=== PATIENT | female | born 1985 | race Caucasian/White ===

== ENCOUNTER 2023-03-20 19:39 | Inpatient (IN) | payer MEDICAID ==
[~2023-03-20] VITALS: Ht 172.7 cm; Wt 78.4 kg
[~2023-03-20 19:39] MED LIST: ALBU18HF2 INH; BENZ0.5T36 PO; BUPR1TAB44 SL; BUSP5TAB3 PO; LITH150C8 PO; MIRT-142 PO
[2023-03-21 00:10] VITALS: RESP 16; O2SAT 94
[2023-03-21] MEDS ORDERED: mag hydrox/Alum hydrox/simeth 30ml oral suspension PO PRN (00:50)
[2023-03-21] MEDS ORDERED: acetaminophen 325mg tablet PO PRN (00:50)
[2023-03-21] MEDS ORDERED: loperamide 2mg capsule PO PRN (00:50)
[2023-03-21] MEDS ORDERED: diphenhydrAMINE 25 MG/10 ML UD oral solution PO PRN (01:15)
[2023-03-21 01:21] VITALS: BP 137/83; PULSE 96; RESP 16; TEMP 98.5; O2SAT 94
[2023-03-21] MEDS: LORazepam 1 MG tablet PO PRN ×2 (01:56→20:39)
--- NOTE | 2023-03-21 02:00 | NUR ---
ADMIT NOTE: Problem: A 38 year old female, with multiple medical problems in addition to psychiatric disorder, presented with altered level of consciousness and was admitted to PCU. Once medically cleared was admitted to [facility] for SI with reports of feeling hopeless and helpless and didnt see herself leaving the hospital. Prior to hospital admission patient was incarcerated in [place] until September. Was in [facility] for some time then was at [facility] for 1 month. She reported to staff at [facility], I think Im going to today. Patient then disappeared for a bit and was found in a position with ALOC. Medical history includes: Possible seizure disorder, Uncontrolled HTN, COPD, Chronic Diverticulosis, UTIs, Depression/Anxiety, Bipolar, SI attempts, Meth and Opioid abuse. Response: Arrived to room 330 A at 0010. Patient is in a catatonic state. Patient is lying very still. Agreed to skin check without hesitation. Noted red raised irritated skin to left upper back from what appears to be her scratching and redness/scabs to bilateral buttocks from scratching. Patient received Benadryl from Alice VAMP WETTER prior to transfer to this floor. When performing 1:1 assessment noted patient giving good eye contact with about 5 second delay in responding to questions. Patient reports feeling unsafe. Reassured her that she was safe. Offered her water and warm blankets. Line of sight at bedside. #20 gauge PIV to R hand. Patent and flushes well. Able to ambulate to BR. Administered PRN Ativan this shift. Endorses SI without a plan. Delusions noted. Reports feeling like she's in a movie. Also reported at one point in the evening that she thought was . Will continue to monitor.
[2023-03-21 07:00] VITALS: BP 108/64; PULSE 85; RESP 16; TEMP 97.7; O2SAT 94; O2SAT 95
[2023-03-21] MEDS ORDERED: PALIPERIDONE 3 MG TAB.ER.24 PO SCH (08:00)
[2023-03-21] MEDS: buprenorphine/naloxone 2-0.5mg sublingual tablet SL SCH (08:24)
[2023-03-21] MEDS: busPIRone 5mg tablet PO SCH ×3 (08:24→20:40)
[2023-03-21] MEDS: docusate sod 100mg capsule PO SCH ×2 (08:25→20:40)
[2023-03-21] MEDS: amLODIPine 5mg tablet PO SCH (08:25)
[2023-03-21] MEDS: pantoprazole 40mg Tablet.DR PO SCH (08:25)
--- NOTE | 2023-03-21 14:46 | NUR ---
PSYCHOSOCIAL ASSESSMENT Met with Pt. briefly today. Pt is a 38 year old white female, with multiple medical problems in addition to psychiatric disorder, presented with altered level of consciousness and was admitted to PCU. Once medically cleared was admitted to [facility] for SI with reports of feeling hopeless and helpless and didnt see herself leaving the hospital. Prior to hospital admission patient was incarcerated in [place] until September. Was in [facility] for some time then was at [facility] for 1 month before admission. She reported to staff at [facility], I think Im going to today. Patient then disappeared for a bit and was found in a position with ALOC. Medical history includes: Possible seizure disorder, Uncontrolled HTN, COPD, Chronic Diverticulosis, UTIs, Depression/Anxiety, Bipolar, SI attempts, Meth and Opioid abuse. Per EMR notes, Pt has been in and out of usp with no contact with her family. Her Aunt Susanne has adopted her 13 year old son and her other two children [place]. Her Aunt Susanne reported that she was in a coma for about 3 weeks 1 year ago that was drug related. When she came out of the coma she had to be taught how to walk, talk etc. However she made a full recovery. She also has drop foot. Her Aunt Susanne also reported her having a dx of Bipolar but has failed on Artois. Pt has a PO through [facility] Hailey Mansfield [phone]. Pt reported that her drug of choice is fentanyl. MSE: Pt was laying in her bed when this Medical Support Assistant introduced myself to her. She spoke minimally and mostly stared straight ahead and would occasionally answer questions. When asked how are you today PT reported, Im . I dont know whats going on. When asked if she knew where she was she was able to say she was in a hospital. Hailey Carlos LCSW
[2023-03-21] MEDS ORDERED: magnesium 4gm in 100ml NS 100 ML IV PRN (18:05)
[2023-03-21] MEDS ORDERED: magnesium Cl slow-release 64mg tablet PO PRN (18:05)
[2023-03-21] MEDS ORDERED: potassium Cl 40MEQ/1/2NS 520ml 520 ML IV PRN (18:05)
[2023-03-21] MEDS ORDERED: magnesium 2GM in 50ml NS 50 ML IV PRN (18:05)
[2023-03-21] MEDS ORDERED: potassium Cl 20 mEq SR tablet PO PRN ×2 (18:05)
--- NOTE | 2023-03-21 18:05 | NUR ---
Nursing Progress Note: Problem: A 38 year old female, with multiple medical problems in addition to psychiatric disorder, presented with altered level of consciousness and was admitted to PCU. Once medically cleared was admitted to [facility] for SI with reports of feeling hopeless and helpless and didnt see herself leaving the hospital. Prior to hospital admission patient was incarcerated in [place] until September. Was in [facility] for some time then was at [facility] for 1 month. She reported to staff at [facility], I think Im going to today. Patient then disappeared for a bit and was found in a position with ALOC. Medical history includes: Possible seizure disorder, Uncontrolled HTN, COPD, Chronic Diverticulosis, UTIs, Depression/Anxiety, Bipolar, SI attempts, Meth and Opioid abuse. Interventions: Provided 1:1 assessment, therapeutic conversation, active listening, medication administration/education/monitoring, behavior monitoring and intervention as needed; attempted reality orientation, provided distraction, redirection, positive reinforcement, and Q15 min safety checks. Response: Received patient sleeping in bed at shift change. Patient is extremely tired and was left to sleep. Patient got up for breakfast and took her medications and went back to bed. At approximately 11:00, patient awakened and 1:1 was performed at bedside. Patient wanted to know if she was going to be taken to prison. Explained that she is in a psychiatric hospital and we are going to get her meds straightened out and then she can be released, but that she would be with us for at least 3 days. Patient states understanding. Patient is complaining of the I.V. in her right wrist, removed with cannula tip intact. Patient wanted to know why she was in here, and RN explained that she was suicidal and does she remember that, she says that she does. Patient states that she thought she was , and that she was having out of body experiences. Plan: Patient is in need of a safe and secure environment with medication changes.
[2023-03-21 20:00] VITALS: BP 140/80; PULSE 100; RESP 16; TEMP 98.6; O2SAT 98
[2023-03-21] MEDS: K and/or MAG REPLACEMENT MC SCH (20:00)
[2023-03-21] MEDS: mirtazapine 15mg tablet PO SCH (20:40)
[2023-03-21] MEDS: traZODone 50mg tablet PO SCH ×2 (20:41→21:35)
--- NOTE | 2023-03-22 01:46 | NUR ---
Nursing Progress Note: Problem: A 38 year old female, with multiple medical problems in addition to psychiatric disorder, presented with altered level of consciousness and was admitted to PCU. Once medically cleared was admitted to [facility] for SI with reports of feeling hopeless and helpless and didnt see herself leaving the hospital. Prior to hospital admission patient was incarcerated in [place] until September. Was in [facility] for some time then was at [facility] for 1 month. She reported to staff at [facility], I think Im going to today. Patient then disappeared for a bit and was found in a position with ALOC. Medical history includes: Possible seizure disorder, Uncontrolled HTN, COPD, Chronic Diverticulosis, UTIs, Depression/Anxiety, Bipolar, SI attempts, Meth and Opioid abuse. Interventions: Provided 1:1 assessment, therapeutic conversation, active listening, medication administration/education/monitoring, behavior monitoring and intervention as needed; attempted reality orientation, provided distraction, redirection, positive reinforcement, and Q15 min safety checks. Response: Patient is pleasant and appears to cooperate to best of her ability. She is appears to thought block; she stated, "yes," to SI with active planning but unable to elaborate. Patient appears to struggle with stating her needs; she came out of her room looking like she needed something but was able to communicate what she was needing/wanting. She was compliant with medication; PRN Ativan provided for anxiety and Trazodone with repeat provided for sleep. Patient is observed sleeping and does not appear to be having difficulty at this time. Plan: Patient is in need of a safe and secure environment with medication changes.
[2023-03-22 07:00] VITALS: RESP 12; O2SAT 94
[2023-03-22 08:00] VITALS: BP 130/74; PULSE 124; RESP 12; TEMP 98.6; O2SAT 94
[2023-03-22] MEDS: K and/or MAG REPLACEMENT MC SCH ×2 (08:00→20:00)
[2023-03-22] MEDS: pantoprazole 40mg Tablet.DR PO SCH (08:19)
[2023-03-22] MEDS: busPIRone 5mg tablet PO SCH ×3 (08:19→21:15)
[2023-03-22] MEDS: amLODIPine 5mg tablet PO SCH (08:19)
[2023-03-22] MEDS: docusate sod 100mg capsule PO SCH ×2 (08:19→21:15)
[2023-03-22] MEDS: PALIPERIDONE 3 MG TAB.ER.24 PO SCH (08:20)
[2023-03-22] MEDS: buprenorphine/naloxone 2-0.5mg sublingual tablet SL SCH (08:21)
[2023-03-22 11:15] LABS: ALANINE AMINOTRANSFERASE 48 U/L (12-78); ALBUMIN 4.2 G/DL (3.4-5.0); ALBUMIN/GLOBULIN RATIO 1.1 (1.1-1.5); ALKALINE PHOSPHATASE 93 IU/L (46-116); ANION GAP 10 (8-16); ASPARTATE AMINO TRANSFERASE 32 U/L (10-37); BILIRUBIN,TOTAL 0.2 MG/DL (0.1-1.0); BLOOD UREA NITROGEN 14 MG/DL (7-18); BUN/CREATININE RATIO 16.9 (10.0-20.0); CALCIUM 9.4 MG/DL (8.5-10.1); CHLORIDE 101 MMOL/L (99-107); CREATININE 0.83 MG/DL (0.40-0.90); GLUCOSE 119 MG/DL (70-104); LDL CHOLESTEROL 109 MG/DL (50-100); MAGNESIUM 2.3 MG/DL (1.5-2.4); POTASSIUM 3.6 MMOL/L (3.5-5.1); SODIUM 139 MMOL/L (135-145); TOTAL CARBON DIOXIDE 28.2 MMOL/L (24-32); eCRCL 92 ML/MIN; eGFR 77 ML/MIN
[2023-03-22] MEDS ORDERED: LITH150C8 PO (11:30)
[2023-03-22] MEDS ORDERED: BUSP5TAB3 PO (11:30)
[2023-03-22] MEDS ORDERED: BENZ0.5T36 PO (11:30)
[2023-03-22] MEDS ORDERED: MIRT-142 PO (11:30)
[2023-03-22] MEDS ORDERED: ALBU18HF2 INH (11:30)
--- NOTE | 2023-03-22 12:09 | NUR ---
Malnutrition consult: Pt reports 14-23 lb wt loss with decreased appetite/PO intake per malnutrition risk screen with RN. Noted pt in a catatonic state on admit to [facility] per senior naval parachutist. Only wt hx in EMR is 79.55 kg 03/17 though no documentation of how wt was obtained. Current scaled weight is 79.55 kg which is 125% IBW. Pt on a regular diet while on PCU prior to transfer to [facility] with fluctuating PO intake, averaging 50% of seven meals which met 63% estimated energy needs and 87% estimated protein needs. Current average PO intake on regular diet has improved to 63% meeting 78% estimated energy needs and 100% estimated protein needs. Per H&P 03/17 pt appears well developed well nourished. Pt with no documented significant decrease in muscle strength or edema. Pt currently lacks a minimum of two criteria for malnutrition. Will continue to follow and monitor s/s of malnutrition. Addendum: 03/22/23 at [address] La Garza RD Amended: Links added.
--- NOTE | 2023-03-22 16:34 | NUR ---
Nursing Progress Note: Vida Problem: A 38 year old female, with multiple medical problems in addition to psychiatric disorder, presented with altered level of consciousness and was admitted to PCU. Once medically cleared was admitted to [facility] for SI with reports of feeling hopeless and helpless and didnt see herself leaving the hospital. Prior to hospital admission patient was incarcerated in [place] until September. Was in [facility] for some time then was at [facility] for 1 month. She reported to staff at [facility], I think Im going to today. Patient then disappeared for a bit and was found in a position with ALOC. Medical history includes: Possible seizure disorder, Uncontrolled HTN, COPD, Chronic Diverticulosis, UTIs, Depression/Anxiety, Bipolar, SI attempts, Meth and Opioid abuse. Interventions: Provided 1:1 assessment, therapeutic conversation, active listening, medication administration/education/monitoring, behavior monitoring and intervention as needed; attempted reality orientation, provided distraction, redirection, positive reinforcement, and Q15 min safety checks. Response: Received Pt in bed sleeping w/o distress at the beginning of this shift. Pt was cooperative with vitals and woke for the day. She came to the nurses station with a fearful look on her face, stating she was having an out of body experience. Pt was walked back to her room and comforted. She came to community room and ate breakfast well. Pt took meds today w/o issue. She returned to bed and napped in AM. She isolated to self, even though walked halls and sat in rooms with others. Pt responds in a delayed fashion to questions and sometimes would just stare and not answer. She did not need prn meds as of the writing of this note. Plan: Patient is in need of a safe and secure environment with medication changes.
[2023-03-22] MEDS: LORazepam 1 MG tablet PO PRN (18:16)
[2023-03-22] MEDS ORDERED: propranolol 10mg tablet PO PRN (18:20)
[2023-03-22 19:00] VITALS: BP 119/71; PULSE 108; RESP 14; TEMP 97.8; O2SAT 99
[2023-03-22] MEDS: benztropine 1mg tablet PO SCH (20:00)
[2023-03-22] MEDS ORDERED: albuterol 2.5 MG/3 ML nebule NEB PRN (20:00)
[2023-03-22] MEDS ORDERED: busPIRone 5mg tablet PO SCH (20:00)
[2023-03-22] MEDS ORDERED: mirtazapine 15mg tablet PO SCH (21:00)
[2023-03-22] MEDS: traZODone 50mg tablet PO SCH (21:16)
[2023-03-22] MEDS: mirtazapine 15mg tablet PO SCH (21:16)
[2023-03-22] MEDS: lithium carbonate 150mg capsule PO SCH (21:29)
--- NOTE | 2023-03-23 04:55 | NUR ---
RN PROGRESS NOTE: LEGAL HOLD: 5250 for DTS/GD PROBLEM: Client reported thoughts of suicide. She has thought blocking and AH. Hx substance use. RESPONSE: Client has a flat affect, is depressed and guarded. She stated "I hope you elida's don't estrada me out. I'm going to kill myself and I want to have a happy life before I ." Client was assured she would not be rushed out. She stated I keep hearing "Get out of here! Get out of here! Get out of here!" Client was re-assured staff was not asking her to leave and she was still on a Legal Hold. Client took meds, had a snack, and returned to sleep w/o difficulty. PLAN: Client requires stabilization.
[2023-03-23] MEDS: busPIRone 5mg tablet PO SCH ×3 (07:47→21:27)
[2023-03-23] MEDS: benztropine 1mg tablet PO SCH ×2 (07:47→21:26)
[2023-03-23] MEDS: pantoprazole 40mg Tablet.DR PO SCH (07:47)
[2023-03-23] MEDS: buprenorphine/naloxone 2-0.5mg sublingual tablet SL SCH (07:48)
[2023-03-23] MEDS: PALIPERIDONE 3 MG TAB.ER.24 PO SCH (07:48)
[2023-03-23] MEDS: amLODIPine 5mg tablet PO SCH (07:49)
[2023-03-23] MEDS: docusate sod 100mg capsule PO SCH ×2 (07:50→21:26)
[2023-03-23 08:00] VITALS: BP 117/63; PULSE 140; RESP 12; TEMP 97.4; O2SAT 98
[2023-03-23] MEDS: K and/or MAG REPLACEMENT MC SCH ×2 (08:00→20:00)
[2023-03-23 10:30] VITALS: PULSE 104
--- NOTE | 2023-03-23 16:46 | NUR ---
Nursing Progress Note: Vida Problem: A 38 year old female, with multiple medical problems in addition to psychiatric disorder, presented with altered level of consciousness and was admitted to PCU. Once medically cleared was admitted to [facility] for SI with reports of feeling hopeless and helpless and didnt see herself leaving the hospital. Prior to hospital admission patient was incarcerated in [place] until September. Was in [facility] for some time then was at [facility] for 1 month. She reported to staff at [facility], I think Im going to today. Patient then disappeared for a bit and was found in a position with ALOC. Medical history includes: Possible seizure disorder, Uncontrolled HTN, COPD, Chronic Diverticulosis, UTIs, Depression/Anxiety, Bipolar, SI attempts, Meth and Opioid abuse. Interventions: Provided 1:1 assessment, therapeutic conversation, active listening, medication administration/education/monitoring, behavior monitoring and intervention as needed; attempted reality orientation, provided distraction, redirection, positive reinforcement, and Q15 min safety checks. Response: Patient continues to sleep and isolate during the morning only getting up for meals. Patient eventually started talking and walking with other patients. Patient started telling other patients about her past. Patient is compliant with medications. Patient speaks very little when nurse tries to talk about why she is here. Patient was given mom due to not having a bowel movement in three days. Waiting on results. Plan: Patient is in need of a safe and secure environment with medication changes.
--- NOTE | 2023-03-23 17:57 | NUR ---
BEATER HEAD documentation: I have reviewed all interventions and assessments performed and documented by Gianfranco.
[2023-03-23 19:00] VITALS: BP 122/61; PULSE 102; RESP 14; RESP 17; TEMP 97.7; O2SAT 99
[2023-03-23] MEDS: mirtazapine 15mg tablet PO SCH (21:27)
[2023-03-23] MEDS: lithium carbonate 150mg capsule PO SCH (21:28)
[2023-03-24] MEDS ORDERED: traZODone 50mg tablet PO ONE ×2 (00:28→01:19)
--- NOTE | 2023-03-24 04:43 | NUR ---
RN PROGRESS NOTE: LEGAL HOLD: 5250 for DTS/GD PROBLEM: Client reported thoughts of suicide. She has thought blocking and AH. Hx substance use. RESPONSE: Client stayed in bed during shift. Affect is flat, mood is depressed. Difficulty falling asleep. Client was given additional Trazodone and then stated "Can you all let me sleep for a few hours before I leave?" She continues to hear voices telling her to "Get out." Client was reassured she was not being discharged. Med compliant. PLAN: Client requires stabilization.
[2023-03-24 07:00] VITALS: RESP 16; O2SAT 98
[2023-03-24 08:00] VITALS: BP 187/106; PULSE 102; RESP 16; TEMP 97.1; O2SAT 98
[2023-03-24] MEDS: K and/or MAG REPLACEMENT MC SCH ×2 (08:00→20:00)
[2023-03-24] MEDS: benztropine 1mg tablet PO SCH ×2 (08:17→20:38)
[2023-03-24] MEDS: PALIPERIDONE 3 MG TAB.ER.24 PO SCH (08:17)
[2023-03-24] MEDS: amLODIPine 5mg tablet PO SCH (08:18)
[2023-03-24] MEDS: busPIRone 5mg tablet PO SCH ×3 (08:18→20:34)
[2023-03-24] MEDS: pantoprazole 40mg Tablet.DR PO SCH (08:18)
[2023-03-24] MEDS: docusate sod 100mg capsule PO SCH ×2 (08:18→20:34)
[2023-03-24] MEDS: buprenorphine/naloxone 2-0.5mg sublingual tablet SL SCH (08:19)
[2023-03-24] MEDS ORDERED: propranolol 10mg tablet PO PRN (09:35)
--- NOTE | 2023-03-24 16:51 | NUR ---
Nursing Progress Note: Vida Problem: A 38 year old female, with multiple medical problems in addition to psychiatric disorder, presented with altered level of consciousness and was admitted to PCU. Once medically cleared was admitted to [facility] for SI with reports of feeling hopeless and helpless and didnt see herself leaving the hospital. Prior to hospital admission patient was incarcerated in [place] until September. Was in [facility] for some time then was at [facility] for 1 month. She reported to staff at [facility], I think Im going to today. Patient then disappeared for a bit and was found in a position with ALOC. Medical history includes: Possible seizure disorder, Uncontrolled HTN, COPD, Chronic Diverticulosis, UTIs, Depression/Anxiety, Bipolar, SI attempts, Meth and Opioid abuse. Interventions: Provided 1:1 assessment, therapeutic conversation, active listening, medication administration/education/monitoring, behavior monitoring and intervention as needed; attempted reality orientation, provided distraction, redirection, positive reinforcement, and Q15 min safety checks. Response: Received Pt in bed sleeping w/o distress at the beginning of this shift. Pt was cooperative with vitals and remained in bed until breakfast. Pt took AM meds w/o any issues. She returned to her room where she isolated for most of the day. Pts pulse was elevated in AM @ 145 then 102 upon manual repeat. Rick HARGROVE notified and Pt received Inderal 20mg. Pts pulse was 89 at noon. Pt reported they are going to get me. Im gonna be killed. Im only a 150lb woman. Pt believes other Pts common gestures or statements are intent to do her harm. Attempts made to ground and de-escalate feelings of dread. Pt able to watch TV with others in community room although she continued to feel unsafe. Plan: Patient is in need of a safe and secure environment with medication changes.
[2023-03-24] MEDS: LORazepam 1 MG tablet PO PRN (18:56)
[2023-03-24 19:00] VITALS: RESP 16; O2SAT 99
[2023-03-24 20:00] VITALS: BP 113/74; PULSE 6; RESP 16; TEMP 97.7; O2SAT 99
[2023-03-24] MEDS: traZODone 50mg tablet PO SCH (20:35)
[2023-03-24] MEDS: lithium carbonate 150mg capsule PO SCH (20:35)
[2023-03-24] MEDS: mirtazapine 15mg tablet PO SCH (20:35)
--- NOTE | 2023-03-25 00:48 | NUR ---
Nursing Progress Note: Vida Problem: A 38 year old female, with multiple medical problems in addition to psychiatric disorder, presented with altered level of consciousness and was admitted to PCU. Once medically cleared was admitted to [facility] for SI with reports of feeling hopeless and helpless and didnt see herself leaving the hospital. Prior to hospital admission patient was incarcerated in [place] until September. Was in [facility] for some time then was at [facility] for 1 month. She reported to staff at [facility], I think Im going to today. Patient then disappeared for a bit and was found in a position with ALOC. Medical history includes: Possible seizure disorder, Uncontrolled HTN, COPD, Chronic Diverticulosis, UTIs, Depression/Anxiety, Bipolar, SI attempts, Meth and Opioid abuse. Interventions: Provided 1:1 assessment, therapeutic conversation, active listening, medication administration/education/monitoring, behavior monitoring and intervention as needed; attempted reality orientation, provided distraction, redirection, positive reinforcement, and Q15 min safety checks. Response: Pt in bed awake at start of shift. She was sitting in bed with a frightened affects, eyes wide open body stiff and tense. She said she had a "very scary day." When asked what she was afraid of pt said "I'm afraid the police are going to get me, I know I am walking around but I think I may be already. Given PRN Ativan. When reassessed Pt said it did not help but she appeared more relaxed. Ate snack in room took HS meds and given repeat dose of Trazodone. Sleeping at this time. Plan: Patient is in need of a safe and secure environment with medication changes.
[2023-03-25 07:00] VITALS: RESP 20; O2SAT 95
[2023-03-25 08:00] VITALS: BP 102/67; PULSE 90; RESP 20; TEMP 98.3; O2SAT 95
[2023-03-25] MEDS: K and/or MAG REPLACEMENT MC SCH ×2 (08:00→20:00)
[2023-03-25] MEDS: busPIRone 5mg tablet PO SCH ×3 (08:05→20:39)
[2023-03-25] MEDS: docusate sod 100mg capsule PO SCH ×2 (08:05→20:39)
[2023-03-25] MEDS: buprenorphine/naloxone 2-0.5mg sublingual tablet SL SCH (08:06)
[2023-03-25] MEDS: pantoprazole 40mg Tablet.DR PO SCH (08:06)
[2023-03-25] MEDS: PALIPERIDONE 3 MG TAB.ER.24 PO SCH (08:07)
[2023-03-25] MEDS: benztropine 1mg tablet PO SCH ×2 (08:08→20:38)
[2023-03-25] MEDS: amLODIPine 5mg tablet PO SCH (08:08)
[2023-03-25 08:16] LABS: ALANINE AMINOTRANSFERASE 27 U/L (12-78); ALBUMIN 3.5 G/DL (3.4-5.0); ALBUMIN/GLOBULIN RATIO 1.1 (1.1-1.5); ALKALINE PHOSPHATASE 65 IU/L (46-116); ANION GAP 8 (8-16); ASPARTATE AMINO TRANSFERASE 13 U/L (10-37); BILIRUBIN,TOTAL 0.3 MG/DL (0.1-1.0); BLOOD UREA NITROGEN 16 MG/DL (7-18); BUN/CREATININE RATIO 20.5 (10.0-20.0); CALCIUM 8.8 MG/DL (8.5-10.1); CHLORIDE 104 MMOL/L (99-107); CREATININE 0.78 MG/DL (0.40-0.90); GLUCOSE 103 MG/DL (70-104); POTASSIUM 3.8 MMOL/L (3.5-5.1); SODIUM 140 MMOL/L (135-145); TOTAL CARBON DIOXIDE 27.7 MMOL/L (24-32); TOTAL PROTEIN 6.8 G/DL (6.4-8.2); eCRCL 98 ML/MIN; eGFR 82 ML/MIN
[2023-03-25] MEDS: magnesium hydroxide 30ml (MOM) UD suspension PO PRN (12:05)
--- NOTE | 2023-03-25 13:54 | NUR ---
5250 UPHELD FOR GD
--- NOTE | 2023-03-25 16:41 | NUR ---
Nursing Progress Note:Vida Problem: A 38 year old female, with multiple medical problems in addition to psychiatric disorder, presented with altered level of consciousness and was admitted to PCU. Was in [facility] for some time then was at [facility] for 1 month. She reported to staff at [facility], I think Im going to today. Patient then disappeared for a bit and was found in a position with ALOC. Medical history includes: Possible seizure disorder, Uncontrolled HTN, COPD, Chronic Diverticulosis, UTIs, Depression/Anxiety, Bipolar, SI attempts, Meth and Opioid abuse. Interventions: Provided 1:1 assessment, therapeutic conversation, active listening, medication administration/education/monitoring, behavior monitoring and intervention as needed; attempted reality orientation, provided distraction, redirection, positive reinforcement, and Q15 min safety checks. Response: Pt. received asleep in her room. She awoke to take her medications without hesitation. She presents as a poor historian on her LBM and was unsure of the date today; PRN MOM administered. Pt. endorses SI with no plan, denies HI, AH, VH and has no DC plan. Pt. presents with good eye contact, delayed responses, and reports being tired Pt. isolated in her room most of the shift, did not attend group or snack times. Pt. did eat all meals in the community room with cohorts, but was not observed socializing with cohorts. Pt. presents with fair hygiene, groomed, and wearing street clothes. Pt. was offered a shower, but refused. Plan: Patient is in need of a safe and secure environment with medication changes.
[2023-03-25] MEDS: LORazepam 1 MG tablet PO PRN (18:30)
[2023-03-25 19:00] VITALS: RESP 16; O2SAT 94
[2023-03-25 19:53] VITALS: BP 93/58; PULSE 82; RESP 16; TEMP 99; O2SAT 94
[2023-03-25] MEDS: mirtazapine 15mg tablet PO SCH (20:39)
[2023-03-25] MEDS: lithium carbonate 150mg capsule PO SCH (20:40)
[2023-03-25] MEDS: traZODone 50mg tablet PO SCH (20:40)
--- NOTE | 2023-03-26 00:46 | NUR ---
Nursing Progress Note:Vida Problem: A 38 year old female, with multiple medical problems in addition to psychiatric disorder, presented with altered level of consciousness and was admitted to PCU. Was in [facility] for some time then was at [facility] for 1 month. She reported to staff at [facility], I think Im going to today. Patient then disappeared for a bit and was found in a position with ALOC. Medical history includes: Possible seizure disorder, Uncontrolled HTN, COPD, Chronic Diverticulosis, UTIs, Depression/Anxiety, Bipolar, SI attempts, Meth and Opioid abuse. Interventions: Provided 1:1 assessment, therapeutic conversation, active listening, medication administration/education/monitoring, behavior monitoring and intervention as needed; attempted reality orientation, provided distraction, redirection, positive reinforcement, and Q15 min safety checks. Response: Pt isolated to her room all shift. At start of shift pt was lying in bed saying very distressed "what did I do to deserve this" Pt would not explain what she meant, did not answer questions about SI or A/V/H. Given PRN Ativan with good result Pt became calmer but still did not answer questions, declined to come to group room for snack. Took all HS medications without hesitation and went to sleep. Plan: Patient is in need of a safe and secure environment with medication changes.
[2023-03-26 07:00] VITALS: RESP 16; O2SAT 95
[2023-03-26 08:00] VITALS: BP 102/61; PULSE 88; RESP 16; TEMP 98; O2SAT 96
[2023-03-26] MEDS: K and/or MAG REPLACEMENT MC SCH ×2 (08:00→20:13)
[2023-03-26] MEDS: PALIPERIDONE 3 MG TAB.ER.24 PO SCH (08:04)
[2023-03-26] MEDS: pantoprazole 40mg Tablet.DR PO SCH (08:04)
[2023-03-26] MEDS: docusate sod 100mg capsule PO SCH ×2 (08:04→20:13)
[2023-03-26] MEDS: busPIRone 5mg tablet PO SCH ×3 (08:05→20:14)
[2023-03-26] MEDS: amLODIPine 5mg tablet PO SCH (08:05)
[2023-03-26] MEDS: benztropine 1mg tablet PO SCH ×2 (08:06→20:13)
[2023-03-26] MEDS: buprenorphine/naloxone 2-0.5mg sublingual tablet SL SCH (08:06)
[2023-03-26] MEDS: LORazepam 1 MG tablet PO PRN (08:19)
[2023-03-26] MEDS: magnesium hydroxide 30ml (MOM) UD suspension PO PRN (09:29)
--- NOTE | 2023-03-26 09:53 | NUR ---
Initial: Pt admit for psychosis, anxiety disorder, and opioid use in early remission. Pt currently on a regular diet and overall eating well, documented with average 78% PO intake since admit meeting 97% estimated energy needs and 100% estimated protein needs. No documented BM, pt constipated per EMR. Pt receiving routine Colace BID and received PRN MoM 03/25 and 03/26. D/w dietary to send prunes and prune juice with next meal to further assist with a BM. Will continue to follow and monitor need for additional nutrition intervention. Recommendations: 1) Continue regular diet 2) Continue routine and PRN bowel care 3) Weekly scaled weights Addendum: 03/26/23 at [address] La Garza RD Amended: Links added.
--- NOTE | 2023-03-26 16:55 | NUR ---
Nursing Progress Note:Vida Problem: A 38 year old female, with multiple medical problems in addition to psychiatric disorder, presented with altered level of consciousness and was admitted to PCU. Was in [facility] for some time then was at [facility] for 1 month. She reported to staff at [facility], I think Im going to today. Patient then disappeared for a bit and was found in a position with ALOC. Medical history includes: Possible seizure disorder, Uncontrolled HTN, COPD, Chronic Diverticulosis, UTIs, Depression/Anxiety, Bipolar, SI attempts, Meth and Opioid abuse. Interventions: Provided 1:1 assessment, therapeutic conversation, active listening, medication administration/education/monitoring, behavior monitoring and intervention as needed; attempted reality orientation, provided distraction, redirection, positive reinforcement, and Q15 min safety checks. Response: Pt. received awake and in bed. She took her medications without hesitation, endorses SI, with no plan and willing to safety plan, denies HI, AH, VH and has no DC plan. Pt. endorses feeling anxious and PRN administered with good results. Pt. isolated in her room through out the shift, has good eye contact, with a flat affect. Pt. ate all meals in the community room, but keeps to herself. She has fair hygiene, refused a shower, and is wearing the clothes from yesterday. Hospitalist notified re LBM more then 5 days ago, today pt. took MOM again, but refused suppository, bowel sounds hypoactive, abd. not distended and soft. Additionally, Hospitalist was notified no K+ level drawn today and order for levels to be input continue: No N.O received thus far. Plan: Patient is in need of a safe and secure environment with medication changes. Addendum: 03/26/23 at 1733 by Buck Clemens) ДМИТРИЙ JULIO CESAR documentation: I have reviewed and agree with all interventions, assessments performed and documented by Gloria HARRELL.
[2023-03-26 19:00] VITALS: BP 95/55; PULSE 86; RESP 14; TEMP 97.6; O2SAT 94
[2023-03-26] MEDS: traZODone 50mg tablet PO SCH (20:14)
[2023-03-26] MEDS: mirtazapine 15mg tablet PO SCH (20:15)
[2023-03-26] MEDS: lithium carbonate 150mg capsule PO SCH (20:15)
[2023-03-26] MEDS: LORazepam 1 MG tablet PO SCH (21:16)
--- NOTE | 2023-03-27 04:23 | NUR ---
RN PROGRESS NOTE: LEGAL HOLD: 5250 for DTS/GD PROBLEM: Client reported thoughts of suicide. She has thought blocking and AH. Hx substance use. RESPONSE: Client was isolative and remained in bed during shift. Flat affect and depressed mood. Client had MOM during day shift and reports she did not have a BM. Client reports feeling "scared". She was given 1 mg Ativan Tab PO. Took PM meds. Fell asleep w/o difficulty. PLAN: Client requires stabilization.
[2023-03-27 07:00] VITALS: RESP 16; O2SAT 94
[2023-03-27] MEDS: K and/or MAG REPLACEMENT MC SCH ×2 (08:00→19:55)
[2023-03-27] MEDS: PALIPERIDONE 3 MG TAB.ER.24 PO SCH (08:18)
[2023-03-27] MEDS: benztropine 1mg tablet PO SCH ×2 (08:18→20:03)
[2023-03-27] MEDS: LORazepam 1 MG tablet PO SCH ×3 (08:18→20:04)
[2023-03-27] MEDS: docusate sod 100mg capsule PO SCH ×2 (08:18→20:03)
[2023-03-27] MEDS: busPIRone 5mg tablet PO SCH ×3 (08:18→20:04)
[2023-03-27] MEDS: pantoprazole 40mg Tablet.DR PO SCH (08:18)
[2023-03-27] MEDS: amLODIPine 5mg tablet PO SCH (08:19)
[2023-03-27] MEDS: buprenorphine/naloxone 2-0.5mg sublingual tablet SL SCH (08:19)
[2023-03-27 08:26] VITALS: BP 120/71; PULSE 74; RESP 18; TEMP 97.9; O2SAT 96
[2023-03-27] MEDS ORDERED: magnesium citrate 296ml oral solution PO ONE (18:10)
[2023-03-27 19:00] VITALS: BP 90/52; PULSE 98; RESP 14; RESP 18; TEMP 98.4; O2SAT 94; O2SAT 98
[2023-03-27] MEDS: traZODone 50mg tablet PO SCH (20:04)
[2023-03-27] MEDS: lithium carbonate 150mg capsule PO SCH (20:05)
[2023-03-27] MEDS: mirtazapine 15mg tablet PO SCH (20:05)
--- NOTE | 2023-03-28 03:14 | NUR ---
RN PROGRESS NOTE: LEGAL HOLD: 5250 for DTS/GD PROBLEM: Client reported thoughts of suicide. She has thought blocking and AH. Hx substance use. RESPONSE: Client came to group room for snack. She was disheveled and avoided eye contact. Client reported she was 'feeling better'. Client has a depressed affect/mood. Took PM meds. Guarded and isolative. PLAN: Client requires stabilization.
[2023-03-28 07:00] VITALS: RESP 16; O2SAT 94
[2023-03-28 08:00] VITALS: BP 91/50; PULSE 78; RESP 16; TEMP 98; O2SAT 96
[2023-03-28] MEDS: K and/or MAG REPLACEMENT MC SCH ×2 (08:00→20:32)
[2023-03-28] MEDS: PALIPERIDONE 3 MG TAB.ER.24 PO SCH (08:09)
[2023-03-28] MEDS: LORazepam 1 MG tablet PO SCH ×3 (08:09→20:18)
[2023-03-28] MEDS: benztropine 1mg tablet PO SCH ×2 (08:09→20:18)
[2023-03-28] MEDS: buprenorphine/naloxone 2-0.5mg sublingual tablet SL SCH (08:09)
[2023-03-28] MEDS: pantoprazole 40mg Tablet.DR PO SCH (08:09)
[2023-03-28] MEDS: busPIRone 5mg tablet PO SCH ×3 (08:09→20:19)
[2023-03-28] MEDS: docusate sod 100mg capsule PO SCH ×2 (08:09→20:18)
--- NOTE | 2023-03-28 17:33 | NUR ---
Nursing Progress Note: Problem: A 38 year old female, with multiple medical problems in addition to psychiatric disorder, presented with altered level of consciousness and was admitted to PCU. Was in [facility] for some time then was at [facility] for 1 month. She reported to staff at [facility], I think Im going to today. Patient then disappeared for a bit and was found in a position with ALOC. Medical history includes: Possible seizure disorder, Uncontrolled HTN, COPD, Chronic Diverticulosis, UTIs, Depression/Anxiety, Bipolar, SI attempts, Meth and Opioid abuse. Interventions: Provided 1:1 assessment, therapeutic conversation, active listening, medication administration/education/monitoring, behavior monitoring and intervention as needed; attempted reality orientation, provided distraction, redirection, positive reinforcement, and Q15 min safety checks. Response: Patient observed sleeping on her bed at shift change. She ate breakfast with her peers and accepted her morning meds. She continues to appear depressed with a flat affect. Patient chooses to answer only what she wants to. Otherwise she just stares into space. Patient eats in the dining room, but isolates to her bed the rest of the time. She endorses SI with no plan. All other MH symptoms are denied. Patient still has not had a BM. She reports that she refused suppository yesterday, but she was able to drink Mag-citrate this morning. Patient attended group this morning which appeared to be good for her. She also came out of her room in the afternoon to watch some TV. Plan: Patient is in need of a safe and secure environment with medication changes.
[2023-03-28] MEDS ORDERED: ondansetron 4mg rapidly disintigrating tab PO ONE ×2 (18:10→18:40)
[2023-03-28] MEDS: traZODone 50mg tablet PO SCH (20:18)
[2023-03-28] MEDS: mirtazapine 15mg tablet PO SCH (20:18)
[2023-03-28] MEDS: lithium carbonate 150mg capsule PO SCH (20:19)
[2023-03-28 20:54] VITALS: BP 108/68; PULSE 89; RESP 15; TEMP 98.7; O2SAT 94
--- NOTE | 2023-03-28 22:56 | NUR ---
Nursing Progress Note: Vida Problem: A 38 year old female, with multiple medical problems in addition to psychiatric disorder, presented with altered level of consciousness and was admitted to PCU. Was in [facility] for some time then was at [facility] for 1 month. She reported to staff at [facility], I think Im going to today. Patient then disappeared for a bit and was found in a position with ALOC. Medical history includes: Possible seizure disorder, Uncontrolled HTN, COPD, Chronic Diverticulosis, UTIs, Depression/Anxiety, Bipolar, SI attempts, Meth and Opioid abuse. Interventions: Provided 1:1 assessment, therapeutic conversation, active listening, medication administration/education/monitoring, behavior monitoring and intervention as needed; attempted reality orientation, provided distraction, redirection, positive reinforcement, and Q15 min safety checks. Response: Patient was observed vomiting at dinner time, PRN Zofran was ordered and administered. During assessment pt was still c/o nausea and vomiting. Second dose Zofran ordered and given. PT began to feel better by snack time. Pt states she is sad and scared that she doesnt know whats going to happen to her when she gets out of here. Pt present with flat affect and depressed. Took all HS medications without issue, denies SI. Plan: Patient is in need of a safe and secure environment with medication changes.
[2023-03-29 07:00] VITALS: RESP 14; O2SAT 90
[2023-03-29 08:00] VITALS: BP 102/60; PULSE 70; RESP 14; TEMP 98.6; O2SAT 90
[2023-03-29] MEDS: pantoprazole 40mg Tablet.DR PO SCH (08:26)
[2023-03-29] MEDS: PALIPERIDONE 3 MG TAB.ER.24 PO SCH (08:26)
[2023-03-29] MEDS: LORazepam 1 MG tablet PO SCH ×3 (08:26→20:02)
[2023-03-29] MEDS: docusate sod 100mg capsule PO SCH ×2 (08:26→20:02)
[2023-03-29] MEDS: busPIRone 5mg tablet PO SCH ×3 (08:27→20:03)
[2023-03-29] MEDS: benztropine 1mg tablet PO SCH ×2 (08:27→20:02)
[2023-03-29] MEDS: buprenorphine/naloxone 2-0.5mg sublingual tablet SL SCH (08:27)
--- NOTE | 2023-03-29 16:33 | NUR ---
Nursing Progress Note: Problem: A 38 year old female, with multiple medical problems in addition to psychiatric disorder, presented with altered level of consciousness and was admitted to PCU. Was in [facility] for some time then was at [facility] for 1 month. She reported to staff at [facility], I think Im going to today. Patient then disappeared for a bit and was found in a position with ALOC. Medical history includes: Possible seizure disorder, Uncontrolled HTN, COPD, Chronic Diverticulosis, UTIs, Depression/Anxiety, Bipolar, SI attempts, Meth and Opioid abuse. Interventions: 1:1 assessment, establishment of rapport, therapeutic conversation;encouraged pt to express her thoughts and feelings, active listening, medication administration/education/monitoring, constipation management, ensured contract for safety, encouraged pt to come to dining room for meals/snacks, provided direction, encouragement, positive reinforcement, and Q15 minute safety checks. Response: Pt ate breakfast in the dining room and was cooperative with her routine medications. Pt c/o 8/10 generalized pain but refused PRN Tylenol. Pt is on routine Suboxone which was effective. Pt reported a small formed BM this morning. She was provided with prune juice. Pt is on a routine stool softener. Pt was given mag citrate yesterday for constipation. Bowel sounds were active and present X 4. Pt spent the majority of the shift isolative to self and bed. Pt reports depression with SI. She has thoughts of stabbing herself with a knife. Pt verbalizes that she will not try anything here. Pt reports AH for the past 2 nights. She hears the voice of her aunt. Pt states that she knows her aunt is not here and that she has not called her since she has been here. Aunt's voice was telling her positive, encouraging things, that things will get better, to remember that she still has her mom,etc. Pt reports that she has a good relationship with her aunt. Encouraged pt to call and talk to her aunt while she is here. Pt denies VH/HI. Pt reported that her stomach hurts from all the stuff she was given. She reports several moderate soft though not liquid bowel movements. She reports that she feels like she could go more. Suggested that she decline her stool softener tonight and perhaps tomorrow morning if the frequent bowel movements continue. Pt's Buspar was increased to 20 mg TID and her paliperidone was increased to 12 mg PO daily. Plan: Patient is in need of crisis interruption with medication adjustment and management in a safe and therapeutic environment until stable.
[2023-03-29 20:00] VITALS: BP 90/60; PULSE 73; RESP 14; TEMP 99.2; O2SAT 95
[2023-03-29] MEDS: mirtazapine 15mg tablet PO SCH (20:03)
[2023-03-29] MEDS: lithium carbonate 150mg capsule PO SCH (20:03)
[2023-03-29] MEDS: traZODone 50mg tablet PO SCH (20:03)
--- NOTE | 2023-03-29 22:38 | NUR ---
Nursing Progress Note: Vida Problem: A 38 year old female, with multiple medical problems in addition to psychiatric disorder, presented with altered level of consciousness and was admitted to PCU. Was in [facility] for some time then was at [facility] for 1 month. She reported to staff at [facility], I think Im going to today. Patient then disappeared for a bit and was found in a position with ALOC. Medical history includes: Possible seizure disorder, Uncontrolled HTN, COPD, Chronic Diverticulosis, UTIs, Depression/Anxiety, Bipolar, SI attempts, Meth and Opioid abuse. Interventions: 1:1 assessment, establishment of rapport, therapeutic conversation; encouraged pt to express her thoughts and feelings, active listening, medication administration/education/monitoring, constipation management, ensured contract for safety, encouraged pt to come to dining room for meals/snacks, provided direction, encouragement, positive reinforcement, and Q15 minute safety checks. Response: Pt resting at change of shift. During assessment pt denies AH but endorses SI until I get out of here. She does not have a plan. Pt presents as flat affect and depressed. Pt got up for snack time and ate her snack in her room. Pt did complain of not sleeping well last night however the pt is currently sleeping and the may repeat order of trazadone not needed. Pt isolated most of the evening. Plan: Patient is in need of crisis interruption with medication adjustment and management in a safe and therapeutic environment until stable.
[2023-03-30 07:00] VITALS: RESP 14; O2SAT 96
[2023-03-30] MEDS: docusate sod 100mg capsule PO SCH ×2 (07:51→20:23)
[2023-03-30] MEDS: busPIRone 5mg tablet PO SCH ×3 (07:51→20:24)
[2023-03-30] MEDS: benztropine 1mg tablet PO SCH ×2 (07:51→20:24)
[2023-03-30] MEDS: pantoprazole 40mg Tablet.DR PO SCH (07:51)
[2023-03-30] MEDS: PALIPERIDONE 3 MG TAB.ER.24 PO SCH (07:52)
[2023-03-30] MEDS: LORazepam 1 MG tablet PO SCH ×3 (07:53→20:24)
[2023-03-30] MEDS: buprenorphine/naloxone 2-0.5mg sublingual tablet SL SCH (07:53)
[2023-03-30 08:00] VITALS: BP 93/54; PULSE 71; RESP 14; TEMP 98.4; O2SAT 96
[2023-03-30] MEDS: magnesium hydroxide 30ml (MOM) UD suspension PO PRN (16:56)
--- NOTE | 2023-03-30 17:00 | NUR ---
Nursing Progress Note: Vida Problem: A 38 year old female, with multiple medical problems in addition to psychiatric disorder, presented with altered level of consciousness and was admitted to PCU. Once medically cleared was admitted to [facility] for SI with reports of feeling hopeless and helpless and didnt see herself leaving the hospital. Prior to hospital admission patient was incarcerated in [place] until September. Was in [facility] for some time then was at [facility] for 1 month. She reported to staff at [facility], I think Im going to today. Patient then disappeared for a bit and was found in a position with ALOC. Medical history includes: Possible seizure disorder, Uncontrolled HTN, COPD, Chronic Diverticulosis, UTIs, Depression/Anxiety, Bipolar, SI attempts, Meth and Opioid abuse. Interventions: Provided 1:1 assessment, therapeutic conversation, active listening, medication administration/education/monitoring, behavior monitoring and intervention as needed; attempted reality orientation, provided distraction, redirection, positive reinforcement, and Q15 min safety checks. Response: Received Pt in bed sleeping w/o distress at the beginning of this shift. Pt was cooperative with vitals and got up to community room for breakfast. Pt took AM and md-day meds w/o issue. Pt less guarded in speech with this RN today. Pt spent most of the day isolating in room. She was up for snacks and returned to her room. Pt c/o constipation; she reports I havent had a real one since I got here. Pt is not an accurate historian; she was given MOM, and awaiting efficacy. Plan: Patient is in need of a safe and secure environment with medication changes.
[2023-03-30] MEDS: bisacodyl 5mg tablet.DR PO PRN (19:25)
[2023-03-30 19:57] VITALS: BP 118/74; PULSE 64; RESP 14; TEMP 98.7; O2SAT 96
[2023-03-30] MEDS: lithium carbonate 150mg capsule PO SCH (20:24)
[2023-03-30] MEDS: prazosin 1mg capsule PO SCH (20:24)
[2023-03-30] MEDS: mirtazapine 15mg tablet PO SCH (20:24)
[2023-03-30] MEDS: traZODone 50mg tablet PO SCH (20:25)
--- NOTE | 2023-03-31 00:10 | NUR ---
Nursing Progress Note: Vida Problem: A 38 year old female, with multiple medical problems in addition to psychiatric disorder, presented with altered level of consciousness and was admitted to PCU. Once medically cleared was admitted to [facility] for SI with reports of feeling hopeless and helpless and didnt see herself leaving the hospital. Prior to hospital admission patient was incarcerated in [place] until September. Was in [facility] for some time then was at [facility] for 1 month. She reported to staff at [facility], I think Im going to today. Patient then disappeared for a bit and was found in a position with ALOC. Medical history includes: Possible seizure disorder, Uncontrolled HTN, COPD, Chronic Diverticulosis, UTIs, Depression/Anxiety, Bipolar, SI attempts, Meth and Opioid abuse. Interventions: Provided 1:1 assessment, therapeutic conversation, active listening, medication administration/education/monitoring, behavior monitoring and intervention as needed; attempted reality orientation, provided distraction, redirection, positive reinforcement, and Q15 min safety checks. Response: Received Pt in resting in bed. Pt c/o stomach fullness and constipation. PRN Dulcolax was ordered and given along with some prune juice. Pt denies AH but voiced SI while I am here in this place. No plan. PT appears flat affect and depressed. Pt ate snacks in her room, all HS medications taken. Plan: Patient is in need of a safe and secure environment with medication changes.
[2023-03-31 07:00] VITALS: RESP 16; O2SAT 95
[2023-03-31 08:00] VITALS: BP 91/51; PULSE 71; RESP 16; TEMP 98; O2SAT 95
[2023-03-31] MEDS: PALIPERIDONE 3 MG TAB.ER.24 PO SCH (08:33)
[2023-03-31] MEDS: benztropine 1mg tablet PO SCH ×2 (08:33→20:28)
[2023-03-31] MEDS: docusate sod 100mg capsule PO SCH ×2 (08:34→20:29)
[2023-03-31] MEDS: busPIRone 5mg tablet PO SCH ×3 (08:34→20:30)
[2023-03-31] MEDS: LORazepam 1 MG tablet PO SCH ×3 (08:34→20:29)
[2023-03-31] MEDS: venlafaxine XR 37.5mg cap (Q24H) PO SCH (08:34)
[2023-03-31] MEDS: buprenorphine/naloxone 2-0.5mg sublingual tablet SL SCH (08:34)
[2023-03-31] MEDS: pantoprazole 40mg Tablet.DR PO SCH (08:35)
[2023-03-31 16:25] LABS: BASOPHILS % (AUTO) 0.5 % (0-1); EOSINOPHILS # (AUTO) 0.2 X10'3 (0-0.9); EOSINOPHILS % (AUTO) 3.4 % (0-6); HEMATOCRIT 38.5 % (35.0-45.0); HEMOGLOBIN 12.8 g/dl (12.0-16.0); LYMPHOCYTES # (AUTO) 1.6 X10'3 (1.1-4.8); LYMPHOCYTES % (AUTO) 23.4 % (21-51); MEAN CORPUSCULAR HEMOGLOBIN 30.9 PG (27.0-31.0); MEAN CORPUSCULAR HGB CONC 33.3 g/dL (33.0-36.5); MEAN CORPUSCULAR VOLUME 92.7 FL (78-98); MEAN PLATELET VOLUME 11.4 FL (7.4-10.4); MONOCYTES # (AUTO) 0.8 X10'3 (0-0.9); MONOCYTES % (AUTO) 10.8 % (2-12); NEUTROPHILS # (AUTO) 4.3 X10'3 (1.8-7.7); NEUTROPHILS % (AUTO) 61.9 % (42-75); PLATELET COUNT 184 X10'3 (140-440); RED BLOOD COUNT 4.16 X10'6 (4.20-5.60); RED CELL DISTRIBUTION WIDTH 13.5 % (11.5-14.5)
--- NOTE | 2023-03-31 16:38 | NUR ---
Nursing Progress Note:Vida Problem: A 38 year old female, with multiple medical problems in addition to psychiatric disorder, presented with altered level of consciousness and was admitted to PCU. Was in [facility] for some time then was at [facility] for 1 month. She reported to staff at [facility], I think Im going to today. Patient then disappeared for a bit and was found in a position with ALOC. Medical history includes: Possible seizure disorder, Uncontrolled HTN, COPD, Chronic Diverticulosis, UTIs, Depression/Anxiety, Bipolar, SI attempts, Meth and Opioid abuse. Interventions: Provided 1:1 assessment, therapeutic conversation, active listening, medication administration/education/monitoring, behavior monitoring and intervention as needed; attempted reality orientation, provided distraction, redirection, positive reinforcement, and Q15 min safety checks. Response: Pt. received asleep and awoke to take her medications without hesitation. She endorses SI, with no plan, denies HI, AH, VH and presented with increased communication with this va underwriter. Pt. was encouraged to shower and did so. She ate all meals in the community room with cohorts. Hospitalist notified d/t decreased diastolic. And, recent constipation ended with copious amounts of hard stool this morning. Pt. has fair hygiene, better groomed, and is wearing unit scrubs. Plan: Patient is in need of a safe and secure environment with medication changes.
[2023-03-31 19:00] VITALS: BP 98/57; PULSE 72; RESP 15; TEMP 98.6; O2SAT 98
[2023-03-31] MEDS: lithium carbonate 150mg capsule PO SCH (20:29)
[2023-03-31] MEDS: traZODone 50mg tablet PO SCH (20:30)
[2023-03-31] MEDS: mirtazapine 15mg tablet PO SCH (20:30)
[2023-03-31] MEDS: prazosin 1mg capsule PO SCH (20:30)
--- NOTE | 2023-04-01 04:06 | NUR ---
RN PROGRESS NOTE: LEGAL HOLD: 5250 for DTS/GD PROBLEM: Client reported thoughts of suicide. She has thought blocking and AH. Hx substance use. RESPONSE: Client stayed in bed during shift. She appears to be fatigued and complains of back pain. Avoids eye contact. Client continues to endorse suicidal ideation a believe's she's being "kicked out" of the unit. Disheveled. Flat affect and depressed mood. PLAN: Client requires stabilization.
[2023-04-01 07:00] VITALS: RESP 16; O2SAT 96
[2023-04-01 08:00] VITALS: BP 99/61; PULSE 55; RESP 18; TEMP 98.4; O2SAT 96
[2023-04-01] MEDS: benztropine 1mg tablet PO SCH ×2 (08:16→20:04)
[2023-04-01] MEDS: busPIRone 5mg tablet PO SCH ×3 (08:19→20:04)
[2023-04-01] MEDS: docusate sod 100mg capsule PO SCH ×2 (08:20→20:05)
[2023-04-01] MEDS: PALIPERIDONE 3 MG TAB.ER.24 PO SCH (08:20)
[2023-04-01] MEDS: LORazepam 1 MG tablet PO SCH ×3 (08:20→20:04)
[2023-04-01] MEDS: venlafaxine XR 37.5mg cap (Q24H) PO SCH (08:20)
[2023-04-01] MEDS: pantoprazole 40mg Tablet.DR PO SCH (08:21)
[2023-04-01] MEDS: buprenorphine/naloxone 2-0.5mg sublingual tablet SL SCH (08:21)
--- NOTE | 2023-04-01 17:42 | NUR ---
Nursing Progress Note: Vida Problem: A 38 year old female, with multiple medical problems in addition to psychiatric disorder, presented with altered level of consciousness and was admitted to PCU. Was in [facility] for some time then was at [facility] for 1 month. She reported to staff at [facility], I think Im going to today. Patient then disappeared for a bit and was found in a position with ALOC. Medical history includes: Possible seizure disorder, Uncontrolled HTN, COPD, Chronic Diverticulosis, UTIs, Depression/Anxiety, Bipolar, SI attempts, Meth and Opioid abuse. Interventions: Provided 1:1 assessment, therapeutic conversation, active listening, medication administration/education/monitoring, behavior monitoring and intervention as needed; attempted reality orientation, provided distraction, redirection, positive reinforcement, and Q15 min safety checks. Response: Pt. received asleep. Pt took medications cooperatively. Pt ate all meals in the community room although pt isolates from others while there. Pt isolative. MD aware of low BP. Performed 1:1 bedside. Pt stated she is worried about children and what will happen when she leaves the unit. Patient endorses SI without plan. Patient denies HI and AVH. Pt has a flat affect. Pt attended group today. Plan: Patient is in need of a safe and secure environment with medication changes.
[2023-04-01 19:20] VITALS: RESP 14; O2SAT 98
[2023-04-01 19:22] VITALS: BP 96/57; PULSE 84; RESP 14; TEMP 97.9
[2023-04-01] MEDS: lithium carbonate 150mg capsule PO SCH (20:03)
[2023-04-01] MEDS: traZODone 50mg tablet PO SCH (20:04)
[2023-04-01] MEDS: mirtazapine 15mg tablet PO SCH (20:05)
[2023-04-01] MEDS: prazosin 1mg capsule PO SCH (20:06)
--- NOTE | 2023-04-01 20:23 | NUR ---
Nursing Progress Note: Vida Problem: A 38 year old female, with multiple medical problems in addition to psychiatric disorder, presented with altered level of consciousness and was admitted to PCU. Was in [facility] for some time then was at [facility] for 1 month. She reported to staff at [facility], I think Im going to today. Patient then disappeared for a bit and was found in a position with ALOC. Medical history includes: Possible seizure disorder, Uncontrolled HTN, COPD, Chronic Diverticulosis, UTIs, Depression/Anxiety, Bipolar, SI attempts, Meth and Opioid abuse. Interventions: One to one with the patient to assess severity of depressive symptoms, self harm risk, and for the presence of disordered thoughts. Provided medication education and assessed for medication side effects. Minipress held for BP 96/57. Response: The patient observed up on the unit sitting in the patient dinning room but she was sitting away from others and did not socialize with peers. Her hair appeared uncombed and unwashed but she stated that she showered yesterday. She has a flat affect and her replies were vague, slow and monotone. She stated that she did not sleep well last night and reported it was "off and on" She denied that she was having auditory of visual hallucinations. She stated that she wanted to return to rehab that she had been in but could not state the name. She denied any seizure activity. She stated she felt severely depressed. She reports frequent suicidal thoughts during the day and the night "To use a sheet and hang myself in the garage" She denies that she would try and hang herself here on the unit. She stated that her anxiety was severe "10/10" Plan: Continue hospitalization for further stabilization and treatment.
[2023-04-02 07:00] VITALS: RESP 16; O2SAT 95
[2023-04-02 08:00] VITALS: BP 96/58; PULSE 62; RESP 14; TEMP 98.4; O2SAT 95
[2023-04-02] MEDS: benztropine 1mg tablet PO SCH ×2 (08:57→20:31)
[2023-04-02] MEDS: buprenorphine/naloxone 2-0.5mg sublingual tablet SL SCH (08:57)
[2023-04-02] MEDS: busPIRone 5mg tablet PO SCH ×3 (08:57→20:30)
[2023-04-02] MEDS: venlafaxine XR 37.5mg cap (Q24H) PO SCH (08:58)
[2023-04-02] MEDS: docusate sod 100mg capsule PO SCH ×2 (08:58→20:32)
[2023-04-02] MEDS: LORazepam 1 MG tablet PO SCH ×3 (08:59→20:30)
[2023-04-02] MEDS: pantoprazole 40mg Tablet.DR PO SCH (08:59)
[2023-04-02] MEDS: PALIPERIDONE 3 MG TAB.ER.24 PO SCH (08:59)
[2023-04-02] MEDS: magnesium hydroxide 30ml (MOM) UD suspension PO PRN (11:52)
--- NOTE | 2023-04-02 17:33 | NUR ---
Nursing Progress Note:Vida Problem: A 38 year old female, with multiple medical problems in addition to psychiatric disorder, presented with altered level of consciousness and was admitted to PCU. Was in [facility] for some time then was at [facility] for 1 month. She reported to staff at [facility], I think Im going to today. Patient then disappeared for a bit and was found in a position with ALOC. Medical history includes: Possible seizure disorder, Uncontrolled HTN, COPD, Chronic Diverticulosis, UTIs, Depression/Anxiety, Bipolar, SI attempts, Meth and Opioid abuse. Currently on 5250 for GD/DTS Interventions: Provided 1:1 assessment, therapeutic conversation, active listening, medication administration/education/monitoring, behavior monitoring and intervention as needed; attempted reality orientation, provided distraction, redirection, positive reinforcement, and Q15 min safety checks. Response: Pt. received asleep and awoke to take her medications. She endorses SI with no plan, denies HI, AH, VH. Pt. presents as withdrawn, has good eye contact, flat affect, and minimal conversation with this report writer. She spent most of the shift awake and sitting in bed, she ate all meals in the community room with cohorts and did engage socially with staff. She has fair hygiene, fairly groomed, and is wearing unit scrubs. Plan: Patient is in need of a safe and secure environment with medication changes. Addendum: 04/02/23 at 1757 by Buck Clemens) RN JULIO CESAR documentation: I have reviewed and agree with all interventions, assessments performed and documented by Gloria HARRELL.
--- NOTE | 2023-04-02 17:57 | NUR ---
F/u 04/02: Pt PO ~89% avg regular diet meeting estimated needs. LBM 03/31 documented to have both constipation and copious stool; unsure accuracy though receiving routine colace BID per EMR. No nutrition interventions at this time. Will continue to follow. Recommendations: 1) Continue regular diet 2) Bowel care per rx 3) Weekly scaled weights Addendum: 04/02/23 at [address] Amended: Links added.
[2023-04-02 19:00] VITALS: RESP 14; O2SAT 98
[2023-04-02 20:00] VITALS: BP 96/55; PULSE 68; RESP 14; TEMP 98.5; O2SAT 98
[2023-04-02] MEDS: traZODone 50mg tablet PO SCH (20:29)
[2023-04-02] MEDS: prazosin 1mg capsule PO SCH (20:30)
[2023-04-02] MEDS: lithium carbonate 150mg capsule PO SCH (20:31)
[2023-04-02] MEDS: mirtazapine 15mg tablet PO SCH (20:32)
--- NOTE | 2023-04-03 00:18 | NUR ---
Nursing Progress Note: Problem: A 38 year old female, with multiple medical problems in addition to psychiatric disorder, presented with altered level of consciousness and was admitted to PCU. Was in [facility] for some time then was at [facility] for 1 month. She reported to staff at [facility], I think Im going to today. Patient then disappeared for a bit and was found in a position with ALOC. Medical history includes: Possible seizure disorder, Uncontrolled HTN, COPD, Chronic Diverticulosis, UTIs, Depression/Anxiety, Bipolar, SI attempts, Meth and Opioid abuse. Currently on 5250 for GD/DTS Interventions: Provided 1:1 assessment, therapeutic conversation, active listening, medication administration/education/monitoring, behavior monitoring and intervention as needed; attempted reality orientation, provided distraction, redirection, positive reinforcement, and Q15 min safety checks. Response: Pt sitting in group room eating at start of shift. Interacting with another pt sitting at her table. He affect is still somewhat flat but has brightened since last week. Pt denies SI or HI, she says she is hearing "a few voices but it is much better." Pt agrees she has had a small amount of improvement. She said she would like to return to [facility] at discharge "It is nice there." Plan: Patient is in need of a safe and secure environment with medication changes.
[2023-04-03 07:00] VITALS: RESP 12; O2SAT 95
[2023-04-03 08:00] VITALS: BP 82/49; PULSE 51; RESP 12; TEMP 97.5; O2SAT 95
[2023-04-03] MEDS: docusate sod 100mg capsule PO SCH ×2 (08:08→20:11)
[2023-04-03] MEDS: benztropine 1mg tablet PO SCH ×2 (08:08→20:06)
[2023-04-03] MEDS: venlafaxine XR 37.5mg cap (Q24H) PO SCH (08:08)
[2023-04-03] MEDS: pantoprazole 40mg Tablet.DR PO SCH (08:08)
[2023-04-03] MEDS: busPIRone 5mg tablet PO SCH ×3 (08:08→20:10)
[2023-04-03] MEDS: PALIPERIDONE 3 MG TAB.ER.24 PO SCH (08:09)
[2023-04-03] MEDS: LORazepam 1 MG tablet PO SCH ×2 (08:09→20:09)
[2023-04-03] MEDS: buprenorphine/naloxone 2-0.5mg sublingual tablet SL SCH (08:09)
[2023-04-03] MEDS: magnesium hydroxide 30ml (MOM) UD suspension PO PRN (08:59)
--- NOTE | 2023-04-03 14:22 | NUR ---
Nursing Progress Note: Problem: A 38 year old female, with multiple medical problems in addition to psychiatric disorder, presented with altered level of consciousness and was admitted to PCU. Was in [facility] for some time then was at [facility] for 1 month. She reported to staff at [facility], I think Im going to today. Patient then disappeared for a bit and was found in a position with ALOC. Medical history includes: Possible seizure disorder, Uncontrolled HTN, COPD, Chronic Diverticulosis, UTIs, Depression/Anxiety, Bipolar, SI attempts, Meth and Opioid abuse. Interventions: 1:1 assessment, establishment of rapport, therapeutic conversation;encouraged pt to express her thoughts and feelings, active listening, medication administration/education/monitoring, constipation management, ensured contract for safety, encouraged pt to come to dining room for meals/snacks, provided direction, encouragement, positive reinforcement, and Q15 minute safety checks. Response: Pt was up for breakfast and cooperative with her medication. Pt admitted to some constipation and stated, "I better take something." PRN MOM was given at 0859. Pt was mostly isolative to self and room though did come out for her room for meals and snacks. Pt reports, "I'm feeling really depressed." Pt continues to endorse SI with thoughts of overdosing on Fentanyl or of walking in front of a train. When asked pt if she was hearing voices she replied, "voices telling me to kill myself." Asked pt if she had called her Aunt. Pt replied, "no, because she'll be disappointed in me." Discussed the possibility that while her Aunt may feel disappointed in her, she would probably be happy to hear from her and know that she is okay. Pt appeared to think about this then stated, "I need to call my daughter and my sister too." Suggested that perhaps speaking with her family could help her to feel a little less depressed. Plan: Patient is in need of crisis interruption with medication adjustment and management in a safe and therapeutic environment until no longer a danger to her self.
[2023-04-03 19:00] VITALS: RESP 14; O2SAT 98
[2023-04-03 19:58] VITALS: BP 75/41; PULSE 50; RESP 14; TEMP 97.4; O2SAT 98
[2023-04-03] MEDS: lithium carbonate 150mg capsule PO SCH (20:07)
[2023-04-03] MEDS: prazosin 1mg capsule PO SCH (20:09)
[2023-04-03] MEDS: mirtazapine 15mg tablet PO SCH (20:09)
[2023-04-03] MEDS: traZODone 50mg tablet PO SCH (20:10)
--- NOTE | 2023-04-04 04:01 | NUR ---
Nursing Progress Note: Vida Ledezma Problem: A 38 year old female, with multiple medical problems in addition to psychiatric disorder, presented with altered level of consciousness and was admitted to PCU. Was in [facility] for some time then was at [facility] for 1 month. She reported to staff at [facility], I think Im going to today. Patient then disappeared for a bit and was found in a position with ALOC. Medical history includes: Possible seizure disorder, Uncontrolled HTN, COPD, Chronic Diverticulosis, UTIs, Depression/Anxiety, Bipolar, SI attempts, Meth and Opioid abuse. Interventions: 1:1 assessment, establishment of rapport, therapeutic conversation; encouraged pt to express her thoughts and feelings, active listening, medication administration/education/monitoring, constipation management, ensured contract for safety, encouraged pt to come to dining room for meals/snacks, provided direction, encouragement, positive reinforcement, and Q15 minute safety checks. Response: upon shift patient observed lying in bed with eyes close, Patient easily aroused. During 1:1, patient seemed reserved or just very depressed. Patient admitted to suicidal thoughts as well as hearing voices that are telling her to kill herself. Patient states she does participate in eating all meals with peers in dining room/common room. Patient does have interest in HS snack, and plans on participating. Patient last bowel movement was reported 03/31. Patient received Docusate sodium with HS medication regimen. Patient denies any pain. Patient compliant with medication regimen with no complaints. Patient currently in bed with eyes closed. no obvious signs of distress to note. Plan: Patient is in need of crisis interruption with medication adjustment and management in a safe and therapeutic environment until no longer a danger to her self.
[2023-04-04 07:00] VITALS: BP 80/46; PULSE 52; RESP 16; TEMP 97.9; O2SAT 94
[2023-04-04] MEDS: PALIPERIDONE 3 MG TAB.ER.24 PO SCH (07:56)
[2023-04-04] MEDS: LORazepam 1 MG tablet PO SCH ×2 (07:57→20:15)
[2023-04-04] MEDS: benztropine 1mg tablet PO SCH ×2 (07:57→20:16)
[2023-04-04] MEDS: pantoprazole 40mg Tablet.DR PO SCH (07:57)
[2023-04-04] MEDS: busPIRone 5mg tablet PO SCH ×3 (07:57→20:15)
[2023-04-04] MEDS: buprenorphine/naloxone 2-0.5mg sublingual tablet SL SCH (07:57)
[2023-04-04] MEDS: docusate sod 100mg capsule PO SCH ×2 (07:58→20:14)
[2023-04-04] MEDS: venlafaxine XR 37.5mg cap (Q24H) PO SCH (08:39)
--- NOTE | 2023-04-04 17:48 | NUR ---
Nursing Progress Note: Problem: A 38 year old female, with multiple medical problems in addition to psychiatric disorder, presented with altered level of consciousness and was admitted to PCU. Was in [facility] for some time then was at [facility] for 1 month. She reported to staff at [facility], I think Im going to today. Patient then disappeared for a bit and was found in a position with ALOC. Medical history includes: Possible seizure disorder, Uncontrolled HTN, COPD, Chronic Diverticulosis, UTIs, Depression/Anxiety, Bipolar, SI attempts, Meth and Opioid abuse. Interventions: 1:1 assessment, establishment of rapport, therapeutic conversation; encouraged pt. to express her thoughts and feelings, active listening, medication administration/education/monitoring, constipation management, ensured contract for safety, encouraged pt to come to dining room for meals/snacks, provided direction, encouragement, positive reinforcement, and Q15 minute safety checks. Response: Patient sleeping in bed at change of shift. Brought her medications to her room and patient took them without incident. Patient came out a little bit later and ate her breakfast. Patient tends to spend most of her time in her room sleeping when she is not eating in dining room. Patient reports that she wants to , and that the voices are telling her to overdose on Fentanyl or walk in front of traffic. Patient states that my mother two years ago, and that they were so close, I cant and never will get over it. Talked with patient about going to grief classes that are offered in the area, once she is discharged. Patient stated that she would be interested in this. Patient did attend group. Plan: Patient is in need of crisis interruption with medication adjustment and management in a safe and therapeutic environment until no longer a danger to her self.
[2023-04-04 19:00] VITALS: BP 97/59; PULSE 68; RESP 18; TEMP 97.7; O2SAT 93
[2023-04-04] MEDS ORDERED: docusate sod 100mg capsule PO SCH (20:00)
[2023-04-04] MEDS: traZODone 50mg tablet PO SCH (20:14)
[2023-04-04] MEDS: lithium carbonate 150mg capsule PO SCH (20:15)
[2023-04-04] MEDS: mirtazapine 15mg tablet PO SCH (20:15)
[2023-04-04] MEDS: prazosin 1mg capsule PO SCH (20:17)
--- NOTE | 2023-04-05 03:43 | NUR ---
Nursing Progress Note: Problem: A 38 year old female, with multiple medical problems in addition to psychiatric disorder, presented with altered level of consciousness and was admitted to PCU. Was in [facility] for some time then was at [facility] for 1 month. She reported to staff at [facility], I think Im going to today. Patient then disappeared for a bit and was found in a position with ALOC. Medical history includes: Possible seizure disorder, Uncontrolled HTN, COPD, Chronic Diverticulosis, UTIs, Depression/Anxiety, Bipolar, SI attempts, Meth and Opioid abuse. Interventions: 1:1 assessment, establishment of rapport, therapeutic conversation; encouraged pt. to express her thoughts and feelings, active listening, medication administration/education/monitoring, constipation management, ensured contract for safety, encouraged pt to come to dining room for meals/snacks, provided direction, encouragement, positive reinforcement, and Q15 minute safety checks. Response: upon arrival this nurse observed patient in bed with eyes closed but easily aroused. During 1:1, patient was very much restricted. Patient didnt want to talk about anything. Patient did admit not hearing the voices as much today. Patient states being very sad. Patient was asked if she was in pain and she said yes, my heart hurts. Patient was given bowel care and managed to have a large bowel movement this shift 04/04. Patient currently in bed with eyes closed. No obvious signs of distress. Plan: Patient is in need of crisis interruption with medication adjustment and management in a safe and therapeutic environment until no longer a danger to herself.
[2023-04-05 07:59] VITALS: RESP 16; O2SAT 94
[2023-04-05 08:00] VITALS: BP 95/54; PULSE 62; RESP 12; TEMP 97.2; O2SAT 96
[2023-04-05] MEDS: pantoprazole 40mg Tablet.DR PO SCH (08:02)
[2023-04-05] MEDS: LORazepam 1 MG tablet PO SCH (08:02)
[2023-04-05] MEDS: busPIRone 5mg tablet PO SCH ×3 (08:03→20:52)
[2023-04-05] MEDS: docusate sod 100mg capsule PO SCH ×2 (08:03→20:53)
[2023-04-05] MEDS: PALIPERIDONE 3 MG TAB.ER.24 PO SCH (08:04)
[2023-04-05] MEDS: buprenorphine/naloxone 2-0.5mg sublingual tablet SL SCH (08:04)
[2023-04-05] MEDS: benztropine 1mg tablet PO SCH ×2 (08:09→20:53)
[2023-04-05] MEDS: venlafaxine XR 37.5mg cap (Q24H) PO SCH (08:09)
--- NOTE | 2023-04-05 17:50 | NUR ---
Nursing Progress Note: Problem: A 38 year old female, with multiple medical problems in addition to psychiatric disorder, presented with altered level of consciousness and was admitted to PCU. Was in [facility] for some time then was at [facility] for 1 month. She reported to staff at [facility], I think Im going to today. Patient then disappeared for a bit and was found in a position with ALOC. Medical history includes: Possible seizure disorder, Uncontrolled HTN, COPD, Chronic Diverticulosis, UTIs, Depression/Anxiety, Bipolar, SI attempts, Meth and Opioid abuse. Interventions: Provided 1:1 assessment, therapeutic conversation, active listening, medication administration/education/monitoring, behavior monitoring and intervention as needed; attempted reality orientation, provided distraction, redirection, positive reinforcement, and Q15 min safety checks. Response: Patient sleeping at shift change. She woke for breakfast and ate with her peers. Shes compliant with medications. Patients affect is more normal versus flat. She reports that she has talked to her daughter which has really cheered her up. Depression has lessened. She denies other MH symptoms. Patient has a new roommate that is friendly and they have become fast friends. She is isolating less and spending time in the community room including groups. Plan: Patient is in need of a safe and secure environment with medication changes.
[2023-04-05 19:00] VITALS: RESP 14; O2SAT 97
[2023-04-05 20:00] VITALS: BP 86/54; PULSE 69; RESP 14; TEMP 97.4; O2SAT 97
[2023-04-05] MEDS: lithium carbonate 150mg capsule PO SCH (20:51)
[2023-04-05] MEDS: traZODone 50mg tablet PO SCH (20:51)
[2023-04-05] MEDS: mirtazapine 15mg tablet PO SCH (20:52)
[2023-04-05] MEDS: prazosin 1mg capsule PO SCH (20:53)
--- NOTE | 2023-04-06 04:35 | NUR ---
Nursing Progress Note: Vida Problem: A 38 year old female, with multiple medical problems in addition to psychiatric disorder, presented with altered level of consciousness and was admitted to PCU. Was in [facility] for some time then was at [facility] for 1 month. She reported to staff at [facility], I think Im going to today. Patient then disappeared for a bit and was found in a position with ALOC. Medical history includes: Possible seizure disorder, Uncontrolled HTN, COPD, Chronic Diverticulosis, UTIs, Depression/Anxiety, Bipolar, SI attempts, Meth and Opioid abuse. Interventions: Provided 1:1 assessment, therapeutic conversation, active listening, medication administration/education/monitoring, behavior monitoring and intervention as needed; attempted reality orientation, provided distraction, redirection, positive reinforcement, and Q15 min safety checks. Response: upon shift patient was observed in room lying on bed with eyes open. During 1:1, patient denied hearing any voices, but admitted to having suicidal thoughts with a plan. Patient requested MOM for bowel care, but patient last bowel movement was 04/04. Patient continues to be up for all meals. Patient participated in snack but ate it in room. Patient is getting along with roommate well. Patient compliant with medication. Patient currently in bed with eyes closed. No obvious signs to note. Plan: Patient is in need of a safe and secure environment with medication changes.
[2023-04-06 07:00] VITALS: RESP 16; O2SAT 94
[2023-04-06 08:00] VITALS: BP 89/49; PULSE 56; RESP 14; TEMP 97.5; O2SAT 96
[2023-04-06] MEDS: LORazepam 0.5 MG tablet PO SCH ×2 (08:26→20:42)
[2023-04-06] MEDS: busPIRone 5mg tablet PO SCH ×3 (08:26→20:41)
[2023-04-06] MEDS: pantoprazole 40mg Tablet.DR PO SCH (08:26)
[2023-04-06] MEDS: docusate sod 100mg capsule PO SCH ×2 (08:27→20:39)
[2023-04-06] MEDS: PALIPERIDONE 3 MG TAB.ER.24 PO SCH (08:27)
[2023-04-06] MEDS: buprenorphine/naloxone 2-0.5mg sublingual tablet SL SCH (08:27)
[2023-04-06] MEDS: benztropine 1mg tablet PO SCH ×2 (08:28→20:39)
[2023-04-06] MEDS: venlafaxine XR 75mg capsule (Q24H) PO SCH (08:35)
[2023-04-06 10:00] VITALS: BP 89/49; PULSE 56; RESP 14; TEMP 97.5; O2SAT 96
--- NOTE | 2023-04-06 14:30 | NUR ---
Nursing Progress Note: Vida Problem: A 38 year old female, with multiple medical problems in addition to psychiatric disorder, presented with altered level of consciousness and was admitted to PCU. Was in [facility] for some time then was at [facility] for 1 month. She reported to staff at [facility], I think Im going to today. Patient then disappeared for a bit and was found in a position with ALOC. Medical history includes: Possible seizure disorder, Uncontrolled HTN, COPD, Chronic Diverticulosis, UTIs, Depression/Anxiety, Bipolar, SI attempts, Meth and Opioid abuse. Interventions: Engaged pt in therapeutic conversation, active listening, medication administration/education/monitoring, behavior monitoring and intervention as needed; attempted reality orientation, provided distraction, redirection, positive reinforcement, and Q15 min safety checks. Response: Assumed pt. care report at noon. Pt. denied hearing any voices, and denies having suicidal thoughts at this time. Patient participated in lunch and in snack but ate it in room. Patient is getting along with roommate as evident by talking together in the room. No complaint with medication this afternoon. pt. laying in bed calm. Plan: Patient is in need of a safe and secure environment with medication changes.
[2023-04-06 19:00] VITALS: BP 102/53; PULSE 58; RESP 17; TEMP 97.2; O2SAT 98
[2023-04-06] MEDS: traZODone 50mg tablet PO SCH (20:41)
[2023-04-06] MEDS: lithium carbonate 150mg capsule PO SCH (20:41)
[2023-04-06] MEDS: mirtazapine 15mg tablet PO SCH (20:42)
[2023-04-06] MEDS: prazosin 1mg capsule PO SCH (20:43)
--- NOTE | 2023-04-07 03:51 | NUR ---
RN PROGRESS NOTE: LEGAL HOLD: 5250 for DTS/GD PROBLEM: Suicidal ideation, thought blocking, and AH. Hx: substance use and psychosis. RESPONSE: Client is fatigued and stayed in bed during shift. She has a flat affect, depressed mood, and avoids eye contact. Compliant with medications. She stated she was going to be discharged next week but did not elaborate on her discharge plans. She was linear and did not make delusional statements or report AH/VH. PLAN: Client requires stabilization.
[2023-04-07 07:00] VITALS: RESP 16; O2SAT 95
[2023-04-07 08:00] VITALS: BP 78/41; PULSE 50; RESP 16; TEMP 97.4; O2SAT 95
[2023-04-07] MEDS: benztropine 1mg tablet PO SCH ×2 (08:06→20:51)
[2023-04-07] MEDS: PALIPERIDONE 3 MG TAB.ER.24 PO SCH (08:06)
[2023-04-07] MEDS: pantoprazole 40mg Tablet.DR PO SCH (08:07)
[2023-04-07] MEDS: LORazepam 0.5 MG tablet PO SCH ×2 (08:07→20:51)
[2023-04-07] MEDS: docusate sod 100mg capsule PO SCH ×2 (08:07→20:52)
[2023-04-07] MEDS: busPIRone 5mg tablet PO SCH ×3 (08:07→20:53)
[2023-04-07] MEDS: venlafaxine XR 75mg capsule (Q24H) PO SCH (08:08)
[2023-04-07] MEDS: buprenorphine/naloxone 2-0.5mg sublingual tablet SL SCH (08:18)
[2023-04-07 09:00] VITALS: BP 94/55; PULSE 62; RESP 16; TEMP 97.9; O2SAT 96
[2023-04-07] MEDS: magnesium hydroxide 30ml (MOM) UD suspension PO PRN (09:18)
--- NOTE | 2023-04-07 17:15 | NUR ---
Nursing Progress Note: Vida Problem: A 38 year old female, with multiple medical problems in addition to psychiatric disorder, presented with altered level of consciousness and was admitted to PCU. Was in [facility] for some time then was at [facility] for 1 month. She reported to staff at [facility], I think Im going to today. Patient then disappeared for a bit and was found in a position with ALOC. Medical history includes: Possible seizure disorder, Uncontrolled HTN, COPD, Chronic Diverticulosis, UTIs, Depression/Anxiety, Bipolar, SI attempts, Meth and Opioid abuse. Interventions: Engaged pt in therapeutic conversation, active listening, medication administration/education/monitoring, behavior monitoring and intervention as needed; attempted reality orientation, provided distraction, redirection, positive reinforcement, and Q15 min safety checks. Response: Received pt asleep in bed. Pt took medications and ate all meals in the community room. Performed 1:1 bedside. Pt endorses SI with a plan stating she wants to be with her mother in [facility]. Her plan is to overdose on Fentanyl. Pt requested grief counseling due to the murder of her mother two years ago. This RN requested the social human services assistants see the patient today. Pt denies HI and AVH. Given PRN MOM for constipation. Pt appearance is well groomed. Pt overall has a flat affect, however this RN observed her smiling during assessment. Pt napped intermittently throughout the shift. Pt calm and cooperative with staff. Plan: Patient is in need of a safe and secure environment with medication changes.
[2023-04-07 19:00] VITALS: RESP 14; O2SAT 96
[2023-04-07 20:00] VITALS: BP 95/54; PULSE 61; RESP 14; TEMP 97; O2SAT 96
[2023-04-07] MEDS: hydrOXYzine 25 MG tablet PO SCH (20:51)
[2023-04-07] MEDS: lithium carbonate 150mg capsule PO SCH (20:51)
[2023-04-07] MEDS: mirtazapine 15mg tablet PO SCH (20:52)
[2023-04-07] MEDS: traZODone 50mg tablet PO SCH ×2 (20:52→22:53)
[2023-04-07] MEDS: prazosin 1mg capsule PO SCH (20:52)
--- NOTE | 2023-04-08 05:27 | NUR ---
Nursing Progress Note: Vida Problem: A 38 year old female, with multiple medical problems in addition to psychiatric disorder, presented with altered level of consciousness and was admitted to PCU. Was in [facility] for some time then was at [facility] for 1 month. She reported to staff at [facility], I think Im going to today. Patient then disappeared for a bit and was found in a position with ALOC. Medical history includes: Possible seizure disorder, Uncontrolled HTN, COPD, Chronic Diverticulosis, UTIs, Depression/Anxiety, Bipolar, SI attempts, Meth and Opioid abuse. Interventions: Engaged pt in therapeutic conversation, active listening, medication administration/education/monitoring, behavior monitoring and intervention as needed; attempted reality orientation, provided distraction, redirection, positive reinforcement, and Q15 min safety checks. Response: Pt received lying in room. She was sleeping but arouseable. No respiratory distress noted. Pt slept most of shift. Pt was up for snack. She engaged minimally with securities underwriter. Pt states she has no bm x 4 days and has received MOM today. Pt Prazosin was held due to SBP 95. Ice Hockey Coach reinforced fall precautions with patient. In addition, bowel care will be followed up in morning. Pt continues to have flat affect. Pt took all medications as ordered. Pt accessed Trazodone repeat dose due to inability to stay asleep. Trazodone repeat dose was effective. Plan: Patient is in need of a safe and secure environment with medication changes.
--- NOTE | 2023-04-08 05:45 | NUR ---
EKG TECHNICIAN documentation: I have reviewed and agree with all interventions, assessments performed and documented by Mao HARRELL.
[2023-04-08 07:00] VITALS: BP 76/40; PULSE 65; RESP 20; TEMP 97.6; O2SAT 95
[2023-04-08] MEDS: benztropine 1mg tablet PO SCH ×2 (07:37→20:28)
[2023-04-08] MEDS: docusate sod 100mg capsule PO SCH ×2 (07:37→20:29)
[2023-04-08] MEDS: pantoprazole 40mg Tablet.DR PO SCH (07:37)
[2023-04-08] MEDS: LORazepam 0.5 MG tablet PO SCH ×2 (07:38→20:28)
[2023-04-08] MEDS: venlafaxine XR 75mg capsule (Q24H) PO SCH (07:38)
[2023-04-08] MEDS: hydrOXYzine 25 MG tablet PO SCH ×3 (07:38→20:28)
[2023-04-08] MEDS: PALIPERIDONE 3 MG TAB.ER.24 PO SCH (07:38)
[2023-04-08] MEDS: busPIRone 5mg tablet PO SCH ×3 (07:38→20:29)
[2023-04-08] MEDS: buprenorphine/naloxone 2-0.5mg sublingual tablet SL SCH (07:39)
[2023-04-08 08:58] VITALS: BP 82/41; PULSE 56; RESP 16; O2SAT 93
--- NOTE | 2023-04-08 17:00 | NUR ---
Nursing Progress Note: Vida Problem: A 38 year old female, with multiple medical problems in addition to psychiatric disorder, presented with altered level of consciousness and was admitted to PCU. Was in [facility] for some time then was at [facility] for 1 month. She reported to staff at [facility], I think Im going to today. Patient then disappeared for a bit and was found in a position with ALOC. Medical history includes: Possible seizure disorder, Uncontrolled HTN, COPD, Chronic Diverticulosis, UTIs, Depression/Anxiety, Bipolar, SI attempts, Meth and Opioid abuse. Interventions: Engaged pt in therapeutic conversation, active listening, medication administration/education/monitoring, behavior monitoring and intervention as needed; attempted reality orientation, provided distraction, redirection, positive reinforcement, and Q15 min safety checks. Response: Received pt asleep in bed. Pt took medications and ate all meals in the community room. Performed 1:1 bedside. Pt endorses SI with a plan stating same as yesterday. Her plan is to overdose on Fentanyl. Pt requested a book on grief, this RN could not find one on the unit. Pt denies HI and AVH. Pt took a shower today. Blood pressure trending low, Hospitalist aware. Pt napped intermittently throughout the shift. Pt calm and cooperative with staff. Pt observed interacting with roommate, laughing and talking. Plan: Patient is in need of a safe and secure environment with medication changes.
[2023-04-08 19:00] VITALS: RESP 12; O2SAT 92
[2023-04-08 20:00] VITALS: BP 98/57; PULSE 69; RESP 12; TEMP 97.8; O2SAT 99
[2023-04-08] MEDS: lithium carbonate 150mg capsule PO SCH (20:28)
[2023-04-08] MEDS: mirtazapine 15mg tablet PO SCH (20:28)
[2023-04-08] MEDS: bisacodyl 5mg tablet.DR PO PRN (20:29)
[2023-04-08] MEDS: prazosin 1mg capsule PO SCH (20:29)
[2023-04-08] MEDS: traZODone 50mg tablet PO SCH (20:29)
--- NOTE | 2023-04-09 05:23 | NUR ---
Nursing Progress Note: Vida Problem: A 38 year old female, with multiple medical problems in addition to psychiatric disorder, presented with altered level of consciousness and was admitted to PCU. Was in [facility] for some time then was at [facility] for 1 month. She reported to staff at [facility], I think Im going to today. Patient then disappeared for a bit and was found in a position with ALOC. Medical history includes: Possible seizure disorder, Uncontrolled HTN, COPD, Chronic Diverticulosis, UTIs, Depression/Anxiety, Bipolar, SI attempts, Meth and Opioid abuse. Interventions: Engaged pt in therapeutic conversation, active listening, medication administration/education/monitoring, behavior monitoring and intervention as needed; attempted reality orientation, provided distraction, redirection, positive reinforcement, and Q15 min safety checks. Response: Pt received ambulating from day room to room. Pt completed dinner. Pt walks with flat affect. Pt continues to trend with soft blood pressure. Pt agrees to 1:1 assessment. Pt reports no bm x 5 days. Pt agreeable to Dulcolax PRN. Pt was anxious about [employer] hold. Pt states she is just here for DTS. Supervisor [employer] attempted to explain multiple times but patient was not able understand. She believes the gravely disabled will affect her placement outside of [facility]. She states that how could I have not have plan for food, clothing, and [place] [facility] when I will be going to [facility]. She also was upset because she feels that the providers are not communicating with her discharge plan. She additionally stated she has not had any contact with her social insurance adviser. Supervisor [employer] encouraged her to discuss with provider at interview tomorrow. Supervisor [employer] additionally stated, he will endorse to next shift for follow up. Pt stated she is here because she felt she couldnt live due to her mother being killed. She stated that she still wants to take fentanyl to numb the pain she feels from her mother being murdered. She cant see living while the murderer is still here. She doesnt feel the [facility] day program is beneficial to her. She does not cope well with group therapy especially on her sensitive subject regarding her mothers . She doesnt feel ready to talk about the pain. She did compared that when she arrived first on the unit, she did not talk at all to anyone for 5 days. Now she is a better as compared to her admission. She has a flat affect. Her appears downcast. Thought process is depressed. Pt is anxious during interview. She mainly isolated in room and came out for dinner and snack. Pt gets along with her room mate well. Pt was compliant with medication pass. Pt was not able to have Prazosin due to decreased blood pressure. Plan: Patient is in need of a safe and secure environment with medication changes.
--- NOTE | 2023-04-09 05:33 | NUR ---
NECK BAND MAKER documentation: I have reviewed and agree with all interventions, assessments performed and documented by Mao HARRELL.
[2023-04-09 07:49] VITALS: BP 90/50; PULSE 55; RESP 16; TEMP 97.7; O2SAT 98
[2023-04-09 08:00] VITALS: RESP 16; O2SAT 98
[2023-04-09] MEDS: buprenorphine/naloxone 2-0.5mg sublingual tablet SL SCH (08:17)
[2023-04-09] MEDS: benztropine 1mg tablet PO SCH ×2 (08:17→20:39)
[2023-04-09] MEDS: PALIPERIDONE 3 MG TAB.ER.24 PO SCH (08:18)
[2023-04-09] MEDS: LORazepam 0.5 MG tablet PO SCH (08:18)
[2023-04-09] MEDS: hydrOXYzine 25 MG tablet PO SCH ×3 (08:18→20:40)
[2023-04-09] MEDS: busPIRone 5mg tablet PO SCH ×3 (08:19→20:39)
[2023-04-09] MEDS: venlafaxine XR 75mg capsule (Q24H) PO SCH (08:19)
[2023-04-09] MEDS: docusate sod 100mg capsule PO SCH ×2 (08:19→20:40)
[2023-04-09] MEDS: pantoprazole 40mg Tablet.DR PO SCH (08:19)
[2023-04-09] MEDS: magnesium hydroxide 30ml (MOM) UD suspension PO PRN (08:50)
[2023-04-09] MEDS ORDERED: magnesium citrate 296ml oral solution PO ONE (15:10)
--- NOTE | 2023-04-09 16:38 | NUR ---
Nursing Progress Note:Vida Problem: A 38 year old female, with multiple medical problems in addition to psychiatric disorder, presented with altered level of consciousness and was admitted to PCU. Was in [facility] for some time then was at [facility] for 1 month. She reported to staff at [facility], I think Im going to today. Patient then disappeared for a bit and was found in a position with ALOC. Medical history includes: Possible seizure disorder, Uncontrolled HTN, COPD, Chronic Diverticulosis, UTIs, Depression/Anxiety, Bipolar, SI attempts, Meth and Opioid abuse. Currently on 5250 for GD/DTS Interventions: Provided 1:1 assessment, therapeutic conversation, active listening, medication administration/education/monitoring, behavior monitoring and intervention as needed; attempted reality orientation, provided distraction, redirection, positive reinforcement, and Q15 min safety checks. Response: Pt. received asleep and awoke to take her medications without hesitation. She endorses SI with a plan, stating Ill take Fentanyl when I get out, I know how much to take, I took it every day she denies HI, AH,VH and has no DC plan at this time. Pt. reports I feel like a zombie sometimes she has a flat affect, and isolates throughout the shift. Pt. reports her LBM was 6 days ago, which has been an issue a few weeks ago as well; MOM admin no results and hospitalist was notified, with no N.O received. Pt. has fair hygiene, was encouraged to shower, wears her hair in a bun, and wears unit scrubs. PRN: MOM, N.O received for Mag Citrate. Plan: Patient is in need of a safe and secure environment with medication changes
--- NOTE | 2023-04-09 17:52 | NUR ---
EM PHYSICIAN documentation: I have reviewed all interventions and assessments performed and documented by JULIO CESAR Castro.
[2023-04-09 19:34] VITALS: BP 94/56; PULSE 73; RESP 14; TEMP 98; O2SAT 95
[2023-04-09] MEDS: lithium carbonate 150mg capsule PO SCH (20:39)
[2023-04-09] MEDS: mirtazapine 15mg tablet PO SCH (20:39)
[2023-04-09] MEDS: traZODone 50mg tablet PO SCH (20:41)
[2023-04-09] MEDS: prazosin 1mg capsule PO SCH (20:42)
--- NOTE | 2023-04-10 02:35 | NUR ---
Nursing Progress Note: Problem: A 38 year old female, with multiple medical problems in addition to psychiatric disorder, presented with altered level of consciousness and was admitted to PCU. Was in [facility] for some time then was at [facility] for 1 month. She reported to staff at [facility], I think Im going to today. Patient then disappeared for a bit and was found in a position with ALOC. Medical history includes: Possible seizure disorder, Uncontrolled HTN, COPD, Chronic Diverticulosis, UTIs, Depression/Anxiety, Bipolar, SI attempts, Meth and Opioid abuse. Currently on 5250 for GD/DTS Interventions: Provided 1:1 assessment, therapeutic conversation, active listening, medication administration/education/monitoring, behavior monitoring and intervention as needed; attempted reality orientation, provided distraction, redirection, positive reinforcement, and Q15 min safety checks. Response: Patient is pleasant and cooperative with care; compliant with medication. She reported BM this shift. Patient endorsed SI without active plan; denied HI, A/VH. Patient was social with typewriter tester and roommate this shift; participated in HS snack prior to bed. She is observed sleeping and does not appear to be having difficulty. Plan: Patient continues to require a safe and therapeutic environment with possible medication adjustments.
--- NOTE | 2023-04-10 04:41 | NUR ---
FURNITURE PAINTER documentation: I have reviewed and agree with all interventions, assessments performed and documented by Mary Pinedo LVN.
[2023-04-10 07:00] VITALS: RESP 16; O2SAT 94
[2023-04-10 08:00] VITALS: BP 99/56; PULSE 63; RESP 16; TEMP 97.1; O2SAT 94
[2023-04-10] MEDS: LORazepam 0.5 MG tablet PO SCH (08:30)
[2023-04-10] MEDS: venlafaxine XR 75mg capsule (Q24H) PO SCH (08:30)
[2023-04-10] MEDS: busPIRone 5mg tablet PO SCH ×3 (08:31→20:29)
[2023-04-10] MEDS: PALIPERIDONE 3 MG TAB.ER.24 PO SCH (08:32)
[2023-04-10] MEDS: pantoprazole 40mg Tablet.DR PO SCH (08:32)
[2023-04-10] MEDS: hydrOXYzine 25 MG tablet PO SCH ×3 (08:32→20:29)
[2023-04-10] MEDS: benztropine 1mg tablet PO SCH ×2 (08:32→20:28)
[2023-04-10] MEDS: docusate sod 100mg capsule PO SCH ×2 (08:33→20:29)
[2023-04-10] MEDS: buprenorphine/naloxone 2-0.5mg sublingual tablet SL SCH (08:33)
--- NOTE | 2023-04-10 16:51 | NUR ---
Nursing Progress Note:Vida Problem: A 38 year old female, with multiple medical problems in addition to psychiatric disorder, presented with altered level of consciousness and was admitted to PCU. Was in [facility] for some time then was at [place] for 1 month. She reported to staff at [facility], I think Im going to today. Patient then disappeared for a bit and was found in a position with ALOC. Medical history includes: Possible seizure disorder, Uncontrolled HTN, COPD, Chronic Diverticulosis, UTIs, Depression/Anxiety, Bipolar, SI attempts, Meth and Opioid abuse. Currently on VOL Interventions: Provided 1:1 assessment, therapeutic conversation, active listening, medication administration/education/monitoring, behavior monitoring and intervention as needed; attempted reality orientation, provided distraction, redirection, positive reinforcement, and Q15 min safety checks. Response: Pt. received asleep and awoke for breakfast. She denies SI, HI, AH, VH, and verbalized potentially going to [facility]. Pt. presents with a flat affect, down casted at times, and with good eye contact. Pt. was observed out in the hardin requesting things such as water or to see her SW, which was uncommon for her. Pt. spent most free time in her room napping, she is currently not on bowel protocol, but discussed requesting routine Miralax to prevent reoccurring constipation. Pt. ate all meals in the community room, but often keeps to herself and doesnt socialize with cohorts. She refused needing a shower today, but presents with poor hygiene, hair un brushed, and is wearing scrubs from this morning. PRN: None Plan: Patient is in need of a safe and secure environment with medication changes
[2023-04-10 19:00] VITALS: RESP 14; O2SAT 95
[2023-04-10 20:00] VITALS: BP 104/68; PULSE 72; RESP 14; TEMP 97.7; O2SAT 95
[2023-04-10] MEDS: lithium carbonate 150mg capsule PO SCH (20:28)
[2023-04-10] MEDS: mirtazapine 15mg tablet PO SCH (20:28)
[2023-04-10] MEDS: traZODone 50mg tablet PO SCH (20:30)
[2023-04-10] MEDS: prazosin 1mg capsule PO SCH (20:34)
--- NOTE | 2023-04-10 22:42 | NUR ---
Nursing Progress Note: Problem: A 38 year old female, with multiple medical problems in addition to psychiatric disorder, presented with altered level of consciousness and was admitted to PCU. Was in [facility] for some time then was at [facility] for 1 month. She reported to staff at [facility], I think Im going to today. Patient then disappeared for a bit and was found in a position with ALOC. Medical history includes: Possible seizure disorder, Uncontrolled HTN, COPD, Chronic Diverticulosis, UTIs, Depression/Anxiety, Bipolar, SI attempts, Meth and Opioid abuse. Currently on 5250 for GD/DTS Interventions: Provided 1:1 assessment, therapeutic conversation, active listening, medication administration/education/monitoring, behavior monitoring and intervention as needed; attempted reality orientation, provided distraction, redirection, positive reinforcement, and Q15 min safety checks. Response: Patient is pleasant and cooperative with care; compliant with medication. Prazosin held for SBP not in parameters. Patient continues to express SI without a plan; denied HI, A/VH with no apparent delusions expressed. Patient continues to socialize more often and participated in HS snack prior to bed; observed sleeping and does not appear to be having difficulty. Plan: Patient continues to require a safe and therapeutic environment with possible medication adjustments. Addendum: 04/11/23 at 0457 by Christi Carreon RN JULIO CESAR documentation: I have reviewed and agree with all interventions, assessments performed and documented by Mary Pinedo LVN.
[2023-04-11 07:00] VITALS: RESP 14; O2SAT 96
[2023-04-11 07:48] VITALS: PULSE 70; RESP 14; TEMP 97; O2SAT 96
[2023-04-11 08:00] VITALS: BP 110/70
[2023-04-11] MEDS: LORazepam 0.5 MG tablet PO SCH (08:58)
[2023-04-11] MEDS: pantoprazole 40mg Tablet.DR PO SCH (08:58)
[2023-04-11] MEDS: busPIRone 5mg tablet PO SCH ×3 (08:58→20:59)
[2023-04-11] MEDS: hydrOXYzine 25 MG tablet PO SCH ×3 (08:58→20:59)
[2023-04-11] MEDS: buprenorphine/naloxone 2-0.5mg sublingual tablet SL SCH (08:59)
[2023-04-11] MEDS: PALIPERIDONE 3 MG TAB.ER.24 PO SCH (08:59)
[2023-04-11] MEDS: docusate sod 100mg capsule PO SCH ×2 (08:59→20:59)
[2023-04-11] MEDS: venlafaxine XR 75mg capsule (Q24H) PO SCH (08:59)
[2023-04-11] MEDS: benztropine 1mg tablet PO SCH ×2 (08:59→20:59)
--- NOTE | 2023-04-11 15:36 | NUR ---
CASE MANAGEMENT Spoke with Pt's PO Hailey Mansfield who reported that Pt. cannot return to [facility] as they do not feel that she is a good fit for their program due to her mental health issues. Pt will not be able to return there upon discharge. She will have to return to Hailey's custody and be taken back to shelter. Hailey will attempt to get her a court date destiny to see if there is another rehab type placement that would be suitable for Pt. Hailey Carlos LCSW
--- NOTE | 2023-04-11 17:15 | NUR ---
Nursing Progress Note: Problem : A 38 year old female, with multiple medical problems in addition to psychiatric disorder, presented with altered level of consciousness and was admitted to PCU. Was in [facility] for some time then was at [facility] for 1 month. She reported to staff at [facility], I think Im going to today. Patient then disappeared for a bit and was found in a position with ALOC. Medical history includes: Possible seizure disorder, Uncontrolled HTN, COPD, Chronic Diverticulosis, UTIs, Depression/Anxiety, Bipolar, SI attempts, Meth and Opioid abuse. Interventions : Introduced self and established rapport, maintained a safe and supportive environment, ensured contract for safety, provided clear and simple instructions, provided active listening and positive encouragement, provided medication education, and maintained Q 15min safety checks. Response : Received pt. sleeping in bed at the beginning of the shift, she awoke to attend breakfast in the Group Room, and afterwards retreated back to bed where she continued to isolate throughout much of the shift getting up only to attend meals. This promotion writer introduced herself and 1:1 was completed at bedside, pt. presents as cooperative, guarded, withdrawn, and with a flat affect. She endorses ongoing S/I, refusing to discuss her plan, however is able to contract for safety while on the unit. Pt. denies any H/I or A/V/KENDRICK. She requested to shave and this promotion writer provided observation for safety precautions. Following lunch, pt. reported concern regarding the doctor's plan to taper her Suboxone. She stated with anxiety, "I either have to stop it so I can go to my program or go back to [facility]." Pt. requested information regarding this medication and she was provided a medication education print-out, she reported contentment. Plan : Pt. continues to require medication adjustments and a safe and supportive environment.
[2023-04-11 19:37] VITALS: BP 95/56; PULSE 61; RESP 16; TEMP 96.3; O2SAT 96
[2023-04-11] MEDS: mirtazapine 15mg tablet PO SCH (20:59)
[2023-04-11] MEDS: traZODone 50mg tablet PO SCH (20:59)
[2023-04-11] MEDS: prazosin 1mg capsule PO SCH (21:00)
[2023-04-11] MEDS: lithium carbonate 150mg capsule PO SCH (21:00)
--- NOTE | 2023-04-11 22:53 | NUR ---
Nursing Progress Note: Problem: A 38 year old female, with multiple medical problems in addition to psychiatric disorder, presented with altered level of consciousness and was admitted to PCU. Was in [facility] for some time then was at [facility] for 1 month. She reported to staff at [facility], I think Im going to today. Patient then disappeared for a bit and was found in a position with ALOC. Medical history includes: Possible seizure disorder, Uncontrolled HTN, COPD, Chronic Diverticulosis, UTIs, Depression/Anxiety, Bipolar, SI attempts, Meth and Opioid abuse. Currently on 5250 for GD/DTS Interventions: Provided 1:1 assessment, therapeutic conversation, active listening, medication administration/education/monitoring, behavior monitoring and intervention as needed; attempted reality orientation, provided distraction, redirection, positive reinforcement, and Q15 min safety checks. Response: Patient is pleasant and cooperative with care; compliant with medication. Prazosin held as SBP not within parameters. She continues to express SI without a plan; denied HI, A/VH. Patient expressed wanting to talk with a social services assistant to get more information on other facilities as she worried she's going to spend "the next 5 years in [facility]." Patient was social with peers and participated in HS snack prior to bed; observed sleeping and does not appear to be having difficulty. Plan: Patient continues to require a safe and therapeutic environment with possible medication adjustments.
[2023-04-12 08:00] VITALS: BP 108/64; PULSE 61; RESP 12; TEMP 97; O2SAT 94
[2023-04-12] MEDS: docusate sod 100mg capsule PO SCH ×2 (08:00→21:04)
[2023-04-12] MEDS ORDERED: buprenorphine/naloxone 2-0.5mg sublingual tablet SL SCH (08:00)
[2023-04-12] MEDS: LORazepam 0.5 MG tablet PO SCH (08:03)
[2023-04-12] MEDS: venlafaxine XR 75mg capsule (Q24H) PO SCH (08:03)
[2023-04-12] MEDS: hydrOXYzine 25 MG tablet PO SCH ×3 (08:03→21:03)
[2023-04-12] MEDS: PALIPERIDONE 3 MG TAB.ER.24 PO SCH (08:04)
[2023-04-12] MEDS: benztropine 1mg tablet PO SCH ×2 (08:06→21:05)
[2023-04-12] MEDS: busPIRone 5mg tablet PO SCH ×3 (08:06→21:02)
[2023-04-12] MEDS: pantoprazole 40mg Tablet.DR PO SCH (08:07)
--- NOTE | 2023-04-12 09:47 | NUR ---
F/u 04/12: Pt PO 97% avg regular diet meeting estimated needs. LBM 8/6 per EMR, likely to be 9/6, BM normal per EMR. Receiving bowel management, refused this morning per EMR. No nutrition intervention at this time. Will continue to follow. Recommendations: 1) Continue regular diet 2) Bowel care per rx 3) Weekly scaled weights Addendum: 04/12/23 at [address] Amended: Links added. Addendum: 04/12/23 at [address] De La Garza RD I have reviewed and agree with note by creative services internMichelle Amanda RD
--- NOTE | 2023-04-12 17:57 | NUR ---
Nursing Progress Note: Problem: A 38 year old female, with multiple medical problems in addition to psychiatric disorder, presented with altered level of consciousness and was admitted to PCU. Was in [facility] for some time then was at [facility] for 1 month. She reported to staff at [facility], I think Im going to today. Patient then disappeared for a bit and was found in a position with ALOC. Medical history includes: Possible seizure disorder, Uncontrolled HTN, COPD, Chronic Diverticulosis, UTIs, Depression/Anxiety, Bipolar, SI attempts, Meth and Opioid abuse. Interventions: maintained a safe and supportive environment, ensured contract for safety, provided clear and simple instructions. Communication was established with active listening and positive reinforcement. Administered medication as ordered, educated pt. about medication being taken, and maintained Q 15min safety checks. Response: 0600 received pt. care report from strategy consultant clin. 0700 Pt. laying in bed wearing green cloth, awake A & O x 4 still appears sleepy but answers questions appropriately. 1:1 was completed at bedside, was cooperative, appears guarded and with a flat affect. Pt. was in a pleasant mood and Participated in all meals and group. Denies S/I at this time; pt. verbalizes understanding of the contract for safety while on the unit. Pt. denies any H/I or A/V/KENDRICK. Pt. had a show today Plan: Pt. continues to require medication adjustments and a safe and supportive environment.
[2023-04-12 19:00] VITALS: RESP 16; O2SAT 99
[2023-04-12 19:05] VITALS: BP 109/71; PULSE 65; RESP 16; TEMP 97.7; O2SAT 99
[2023-04-12] MEDS: prazosin 1mg capsule PO SCH (21:00)
[2023-04-12] MEDS: traZODone 50mg tablet PO SCH (21:02)
[2023-04-12] MEDS: mirtazapine 15mg tablet PO SCH (21:03)
[2023-04-12] MEDS: lithium carbonate 150mg capsule PO SCH (21:04)
--- NOTE | 2023-04-13 00:20 | NUR ---
Nursing Progress Note: Problem: A 38 year old female, with multiple medical problems in addition to psychiatric disorder, presented with altered level of consciousness and was admitted to PCU. Was in [facility] for some time then was at [facility] for 1 month. She reported to staff at [facility], I think Im going to today. Patient then disappeared for a bit and was found in a position with ALOC. Medical history includes: Possible seizure disorder, Uncontrolled HTN, COPD, Chronic Diverticulosis, UTIs, Depression/Anxiety, Bipolar, SI attempts, Meth and Opioid abuse. Currently on 5250 for GD/DTS Interventions: Provided 1:1 assessment, therapeutic conversation, active listening, medication administration/education/monitoring, behavior monitoring and intervention as needed; attempted reality orientation, provided distraction, redirection, positive reinforcement, and Q15 min safety checks. Response: Received pt. lying in bed napping at change of shift. After napping pt. walked to the community room with her room mate for evening snack. Pt. is social with peers. Pt. continues to endorse SI w/a plan to overdose on fentanyl. Pt. expresses always feeling suicidal ever since her mother was murdered 2 years ago. She denies HI/AH/VH. Pt. is medication compliant. Observed and appears to be sleeping without difficulty. Plan: Patient continues to require a safe and therapeutic environment with possible medication adjustments.
[2023-04-13 07:00] VITALS: RESP 12; O2SAT 96
[2023-04-13 07:30] VITALS: BP 88/52; PULSE 58; RESP 12; TEMP 97.5; O2SAT 96
[2023-04-13] MEDS: hydrOXYzine 25 MG tablet PO SCH ×3 (08:07→20:33)
[2023-04-13] MEDS: LORazepam 0.5 MG tablet PO SCH (08:07)
[2023-04-13] MEDS: docusate sod 100mg capsule PO SCH ×2 (08:07→20:33)
[2023-04-13] MEDS: pantoprazole 40mg Tablet.DR PO SCH (08:07)
[2023-04-13] MEDS: venlafaxine XR 75mg capsule (Q24H) PO SCH (08:08)
[2023-04-13] MEDS: PALIPERIDONE 3 MG TAB.ER.24 PO SCH (08:08)
[2023-04-13] MEDS: benztropine 1mg tablet PO SCH ×2 (08:08→20:33)
[2023-04-13] MEDS: busPIRone 5mg tablet PO SCH ×3 (08:08→20:34)
[2023-04-13] MEDS: buprenorphine/naloxone 2-0.5mg sublingual tablet SL SCH (08:27)
--- NOTE | 2023-04-13 14:52 | NUR ---
Nursing Progress Note: Problem: A 38 year old female, with multiple medical problems in addition to psychiatric disorder, presented with altered level of consciousness and was admitted to PCU. Was in [facility] for some time then was at [facility] for 1 month. She reported to staff at [facility], I think Im going to today. Patient then disappeared for a bit and was found in a position with ALOC. Medical history includes: Possible seizure disorder, Uncontrolled HTN, COPD, Chronic Diverticulosis, UTIs, Depression/Anxiety, Bipolar, SI attempts, Meth and Opioid abuse. Interventions: 1:1 assessment, therapeutic conversation;encouraged pt to express her thoughts and feelings, active listening, medication administration/education/monitoring, ensured contract for safety, maintained a safe environment, provided distraction, direction, encouragement, positive reinforcement, and Q15 minute safety checks. Response: Pt was out of her room for meals and cooperative with her medications. Pt is on board with being weaned off of the Suboxone. Pt reports that she is "good" today. Pt wrote a letter to her daughter. Pt reports that she spoke with her daughter on the phone earlier. Her daughter is a cheerleader and she was at a game earlier with pt's sister. Evidently the cheerleaders are not allowed to bring in outside drinks and instead have to purchase expensive bottles of water at the game.($5 per bottle.) Pt's sister bought her daughter one bottle which she drank. Awhile later she became thirsty again then began to feel unwell/sick from dehydration and was getting angry and feeling as though she were going to leave the game. Pt expressed concern and indignation over the situation and this prompted her to write a supportive letter to her daughter. Pt appears more animated and less apathetic, she is communicating more with her family, and setting some goals for the future post discharge. Pt's Trazodone was increased to 150 mg HS MR X1, her Effexor XR was increased to 225 mg daily. Plan: Patient is in need of crisis interruption with medication adjustment and management in a safe and therapeutic environment until a safe and appropriate discharge plan can be formulated.
[2023-04-13 19:00] VITALS: RESP 16; O2SAT 96
[2023-04-13 20:00] VITALS: BP 115/75; PULSE 62; RESP 16; TEMP 98.3; O2SAT 96
[2023-04-13] MEDS: lithium carbonate 150mg capsule PO SCH (20:35)
[2023-04-13] MEDS: prazosin 1mg capsule PO SCH (20:36)
[2023-04-13] MEDS: mirtazapine 15mg tablet PO SCH (20:38)
[2023-04-13] MEDS: magnesium hydroxide 30ml (MOM) UD suspension PO PRN (20:59)
[2023-04-13] MEDS ORDERED: traZODone 50mg tablet PO SCH (21:00)
--- NOTE | 2023-04-14 01:51 | NUR ---
Nursing Progress Note: Problem: A 38 year old female, with multiple medical problems in addition to psychiatric disorder, presented with altered level of consciousness and was admitted to PCU. Was in [facility] for some time then was at [facility] for 1 month. She reported to staff at [facility], I think Im going to today. Patient then disappeared for a bit and was found in a position with ALOC. Medical history includes: Possible seizure disorder, Uncontrolled HTN, COPD, Chronic Diverticulosis, UTIs, Depression/Anxiety, Bipolar, SI attempts, Meth and Opioid abuse. Interventions: 1:1 assessment, therapeutic conversation;encouraged pt to express her thoughts and feelings, active listening, medication administration/education/monitoring, ensured contract for safety, maintained a safe environment, provided distraction, direction, encouragement, positive reinforcement, and Q15 minute safety checks. Response: Received pt. napping at change of shift. Pt. was up for evening snack in the community room. Pt. is social with peers and observed socializing with a staff member. Pt. is medication compliant. Pt. continues to endorse SI stating "yeah, the same". She denies HI/AH/VH. Pt. requested MOM this shift. Pt. states that there's no good reading material. Pt. laid in bed reading until falling asleep. Plan: Patient is in need of crisis interruption with medication adjustment and management in a safe and therapeutic environment until a safe and appropriate discharge plan can be formulated.
[2023-04-14 07:24] VITALS: BP 87/58; PULSE 58; RESP 16; TEMP 98.7; O2SAT 95
[2023-04-14] MEDS: LORazepam 0.5 MG tablet PO SCH (08:14)
[2023-04-14] MEDS: buprenorphine/naloxone 2-0.5mg sublingual tablet SL SCH (08:15)
[2023-04-14] MEDS: busPIRone 5mg tablet PO SCH ×3 (08:15→20:35)
[2023-04-14] MEDS: benztropine 1mg tablet PO SCH ×2 (08:16→20:34)
[2023-04-14] MEDS: venlafaxine XR 75mg capsule (Q24H) PO SCH (08:16)
[2023-04-14] MEDS: hydrOXYzine 25 MG tablet PO SCH ×3 (08:16→20:35)
[2023-04-14] MEDS: docusate sod 100mg capsule PO SCH ×2 (08:16→20:35)
[2023-04-14] MEDS: PALIPERIDONE 3 MG TAB.ER.24 PO SCH (08:16)
[2023-04-14] MEDS: pantoprazole 40mg Tablet.DR PO SCH (08:16)
[2023-04-14] MEDS ORDERED: magnesium citrate 296ml oral solution PO ONE (08:25)
--- NOTE | 2023-04-14 17:19 | NUR ---
Nursing Progress Note: Problem: A 38 year old female, with multiple medical problems in addition to psychiatric disorder, presented with altered level of consciousness and was admitted to PCU. Was in [facility] for some time then was at [facility] for 1 month. She reported to staff at [facility], I think Im going to today. Patient then disappeared for a bit and was found in a position with ALOC. Medical history includes: Possible seizure disorder, Uncontrolled HTN, COPD, Chronic Diverticulosis, UTIs, Depression/Anxiety, Bipolar, SI attempts, Meth and Opioid abuse. Interventions: maintained a safe and supportive environment, ensured contract for safety, provided clear and simple instructions. Communication was established with active listening and positive reinforcement. Administered medication as ordered, educated pt. about medication being taken, and maintained Q 15min safety checks. Response: Pt having constipation today for 4 days. Pt states having Milk of Magnesia last night with no BM. Pt given Mag citrate today. No results. Pt then given Dulcolax at 1745. Plan: Pt. continues to require medication adjustments and a safe and supportive environment.
[2023-04-14] MEDS: bisacodyl 5mg tablet.DR PO PRN (17:29)
[2023-04-14 19:00] VITALS: RESP 18; O2SAT 98
[2023-04-14 20:00] VITALS: BP 97/63; PULSE 75; RESP 18; TEMP 97.6; O2SAT 98
[2023-04-14] MEDS: traZODone 50mg tablet PO SCH (20:36)
[2023-04-14] MEDS: lithium carbonate 150mg capsule PO SCH (20:38)
[2023-04-14] MEDS: mirtazapine 15mg tablet PO SCH (20:38)
[2023-04-14] MEDS: magnesium hydroxide 30ml (MOM) UD suspension PO PRN (20:39)
[2023-04-14] MEDS: prazosin 1mg capsule PO SCH (21:00)
--- NOTE | 2023-04-15 01:14 | NUR ---
Nursing Progress Note: Problem: A 38 year old female, with multiple medical problems in addition to psychiatric disorder, presented with altered level of consciousness and was admitted to PCU. Was in [facility] for some time then was at [facility] for 1 month. She reported to staff at [facility], I think Im going to today. Patient then disappeared for a bit and was found in a position with ALOC. Medical history includes: Possible seizure disorder, Uncontrolled HTN, COPD, Chronic Diverticulosis, UTIs, Depression/Anxiety, Bipolar, SI attempts, Meth and Opioid abuse. Interventions: 1:1 assessment, therapeutic conversation;encouraged pt to express her thoughts and feelings, active listening, medication administration/education/monitoring, ensured contract for safety, maintained a safe environment, provided distraction, direction, encouragement, positive reinforcement, and Q15 minute safety checks. Response: Pt. quietly lying in bed at change of shift. Pt. is pleasant and cooperative. Observed sitting at the side of her bed socializing with her room mate. Pt. denies HI/AH/VH but continues to endorse SI. Pt. reports not having a BM in 4 days. Pt. was provided MOM along with her scheduled HS colace. Pt. is medication compliant. She participated in evening snack. Before going to bed, Pt. showed this magazine writer and her room mate her clothing she picked from the clothing closet. Observed and appears sleeping without difficulty. Plan: Patient is in need of crisis interruption with medication adjustment and management in a safe and therapeutic environment until a safe and appropriate discharge plan can be formulated.
[2023-04-15] MEDS: PALIPERIDONE 3 MG TAB.ER.24 PO SCH (07:41)
[2023-04-15] MEDS: benztropine 1mg tablet PO SCH ×2 (07:41→20:28)
[2023-04-15] MEDS: busPIRone 5mg tablet PO SCH ×3 (07:41→20:29)
[2023-04-15] MEDS: pantoprazole 40mg Tablet.DR PO SCH (07:41)
[2023-04-15] MEDS: docusate sod 100mg capsule PO SCH ×2 (07:41→20:28)
[2023-04-15] MEDS: hydrOXYzine 25 MG tablet PO SCH ×3 (07:42→20:29)
[2023-04-15] MEDS: LORazepam 0.5 MG tablet PO SCH (07:42)
[2023-04-15] MEDS: buprenorphine/naloxone 2-0.5mg sublingual tablet SL SCH ×2 (07:42→08:54)
[2023-04-15] MEDS: venlafaxine XR 75mg capsule (Q24H) PO SCH (07:42)
[2023-04-15 08:00] VITALS: BP 93/52; PULSE 61; RESP 18; TEMP 97.2; O2SAT 94
--- NOTE | 2023-04-15 17:14 | NUR ---
Nursing Progress Note: Problem: A 38 year old female, with multiple medical problems in addition to psychiatric disorder, presented with altered level of consciousness and was admitted to PCU. Was in [facility] for some time then was at [facility] for 1 month. She reported to staff at [facility], I think Im going to today. Patient then disappeared for a bit and was found in a position with ALOC. Medical history includes: Possible seizure disorder, Uncontrolled HTN, COPD, Chronic Diverticulosis, UTIs, Depression/Anxiety, Bipolar, SI attempts, Meth and Opioid abuse. Interventions: 1:1 assessment, therapeutic conversation;encouraged pt to express her thoughts and feelings, active listening, medication administration/education/monitoring, ensured contract for safety, maintained a safe environment, provided distraction, direction, encouragement, positive reinforcement, and Q15 minute safety checks. Response: Pt cooperative with all care. Pt cooperative with medications. Pt is making phone calls to various rehabs working on her discharge. Pt requesting note from her provider to help with parole/probation to get into rehab. Plan: Patient is in need of crisis interruption with medication adjustment and management in a safe and therapeutic environment until a safe and appropriate discharge plan can be formulated.
[2023-04-15 19:00] VITALS: RESP 16; O2SAT 98
[2023-04-15 20:00] VITALS: BP 99/53; PULSE 64; RESP 16; TEMP 97.7; O2SAT 98
[2023-04-15] MEDS: traZODone 50mg tablet PO SCH (20:29)
[2023-04-15] MEDS: mirtazapine 15mg tablet PO SCH (20:30)
[2023-04-15] MEDS: lithium carbonate 150mg capsule PO SCH (20:30)
[2023-04-15] MEDS: prazosin 1mg capsule PO SCH (20:32)
--- NOTE | 2023-04-16 01:53 | NUR ---
Nursing Progress Note: Problem: A 38 year old female, with multiple medical problems in addition to psychiatric disorder, presented with altered level of consciousness and was admitted to PCU. Was in [facility] for some time then was at [facility] for 1 month. She reported to staff at [facility], I think Im going to today. Patient then disappeared for a bit and was found in a position with ALOC. Medical history includes: Possible seizure disorder, Uncontrolled HTN, COPD, Chronic Diverticulosis, UTIs, Depression/Anxiety, Bipolar, SI attempts, Meth and Opioid abuse. Interventions: 1:1 assessment, therapeutic conversation;encouraged pt to express her thoughts and feelings, active listening, medication administration/education/monitoring, ensured contract for safety, maintained a safe environment, provided distraction, direction, encouragement, positive reinforcement, and Q15 minute safety checks. Response: Pt. lying in bed at change of shift. Pt. continues to endorse SI stating "yes, the same as yesterday". Pt. denies HI/AH/VH. She is medication compliant; prazosin held d/t low systolic of 99. Pt. shared that she received a phone call from her old room mate. Pt. participated in evening snack and returned to her room for the night. Plan: Patient is in need of crisis interruption with medication adjustment and management in a safe and therapeutic environment until a safe and appropriate discharge plan can be formulated.
[2023-04-16 07:00] VITALS: RESP 16; O2SAT 94
[2023-04-16 08:00] VITALS: BP 90/55; PULSE 68; RESP 16; TEMP 97.6; O2SAT 94
[2023-04-16] MEDS: pantoprazole 40mg Tablet.DR PO SCH (08:38)
[2023-04-16] MEDS: hydrOXYzine 25 MG tablet PO SCH ×3 (08:39→20:40)
[2023-04-16] MEDS: LORazepam 0.5 MG tablet PO SCH (08:39)
[2023-04-16] MEDS: docusate sod 100mg capsule PO SCH ×2 (08:39→20:40)
[2023-04-16] MEDS: benztropine 1mg tablet PO SCH ×2 (08:39→20:40)
[2023-04-16] MEDS: venlafaxine XR 75mg capsule (Q24H) PO SCH (08:39)
[2023-04-16] MEDS: busPIRone 5mg tablet PO SCH ×3 (08:39→20:41)
[2023-04-16] MEDS: buprenorphine/naloxone 2-0.5mg sublingual tablet SL SCH (08:40)
[2023-04-16] MEDS: acetaminophen 325mg tablet PO PRN (08:40)
[2023-04-16] MEDS: PALIPERIDONE 3 MG TAB.ER.24 PO SCH (08:40)
[2023-04-16 12:58] LABS: BILIRUBIN,URINE NEGATIVE (Neg); CLARITY,URINE SLIGHTLY CLOUDY (Clear); COLOR,URINE YELLOW (Yellow); GLUCOSE, URINE NEGATIVE (Neg); KETONES,URINE TRACE mg/dl (Neg); LEUKOCYTE ESTERASE ,URINE NEGATIVE (Neg); NITRITES, URINE NEGATIVE (Neg); OCCULT BLOOD,URINE NEGATIVE (Neg); PH,URINE 5.5 (4.8-8.0); PROTEIN,URINE NEGATIVE (Neg); UROBILINOGEN,URINE 0.2 E.U/dL (0.2-1.0)
[2023-04-16 13:04] LABS: UA COLLECTION TYPE CLN CATCH MIDSTREAM
[2023-04-16 13:05] LABS: RBC,URINE NONE SEEN /HPF (0-2); SQUAMOUS EPITHELIAL CELL,UR MANY /LPF (FEW); WBC,URINE 0-4 /HPF (0-4)
[2023-04-16 13:06] LABS: BACTERIA,URINE FEW /HPF (Neg)
[2023-04-16 13:07] LABS: MUCUS STRANDS FEW /LPF (Neg)
--- NOTE | 2023-04-16 17:06 | NUR ---
Nursing Progress Note: Problem : A 38 year old female, with multiple medical problems in addition to psychiatric disorder, presented with altered level of consciousness and was admitted to PCU. Was in [facility] for some time then was at [facility] for 1 month. She reported to staff at [facility], I think Im going to today. Patient then disappeared for a bit and was found in a position with ALOC. Medical history includes: Possible seizure disorder, Uncontrolled HTN, COPD, Chronic Diverticulosis, UTIs, Depression/Anxiety, Bipolar, SI attempts, Meth and Opioid abuse. Interventions : Maintained a safe and supportive environment, provided clear and simple instructions, provided active listening and positive encouragement, obtained ordered urine sample and completed a bladder scan, and maintained Q 15min safety checks. Response : Received pt. sleeping in bed at the beginning of the shift, she awoke to attend breakfast in the Group Room, and afterwards retreated back to bed as is her routine. 1:1 was completed at bedside, pt. continues to present as cooperative, guarded, withdrawn, and with a blunted affect. She will stare blankly at times and exhibits thought blocking. Pt. endorses ongoing S/I, and again declines to discuss any plan, however is able to contract for safety while on the unit. She denies all other mental health s/s. Pt. 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 After six months she will be paid for her work. Pt. states, "It's a lot better than going to [facility]." In the afternoon, pt. reported difficulty with urination and decreased urine volume. This was endorsed to Dr. Rothman and a urinalysis was ordered which was WNL. This business writer also completed a bladder scan which showed a minimal amount of urine, 81mL, present in pt's bladder. Will continue to monitor and endorse to Noc shift. Plan : Pt. continues to require medication adjustments and a safe and supportive environment.
[2023-04-16 19:00] VITALS: RESP 14; O2SAT 96
[2023-04-16 20:00] VITALS: BP 97/60; PULSE 64; RESP 14; TEMP 97.7; O2SAT 96
[2023-04-16] MEDS: mirtazapine 15mg tablet PO SCH (20:41)
[2023-04-16] MEDS: traZODone 50mg tablet PO SCH (20:41)
[2023-04-16] MEDS: prazosin 1mg capsule PO SCH (20:41)
[2023-04-16] MEDS: lithium carbonate 150mg capsule PO SCH (20:41)
--- NOTE | 2023-04-16 23:56 | NUR ---
Nursing Progress Note: Problem : A 38 year old female, with multiple medical problems in addition to psychiatric disorder, presented with altered level of consciousness and was admitted to PCU. Was in [facility] for some time then was at [facility] for 1 month. She reported to staff at [facility], I think Im going to today. Patient then disappeared for a bit and was found in a position with ALOC. Medical history includes: Possible seizure disorder, Uncontrolled HTN, COPD, Chronic Diverticulosis, UTIs, Depression/Anxiety, Bipolar, SI attempts, Meth and Opioid abuse. Interventions : Maintained a safe and supportive environment, provided clear and simple instructions, provided active listening and positive encouragement, obtained ordered urine sample and completed a bladder scan, and maintained Q 15min safety checks. Response : Pt. received eating dinner in the community room at change of shift. Pt. is pleasant and cooperative. Pt. presents with a flat affect. Pt. napped until evening snack. Pt. sat in the recreation room and watched the [employer] music awards for a short period. Pt continues to endorse SI w/a plan. She reports her depression wasn't bad today and some anxiety about her future. She took all medications without issue. Observed and appears sleeping without difficulty. Plan : Pt. continues to require medication adjustments and a safe and supportive environment. Addendum: 04/17/23 at 0429 by Lorraine Rush RN PHYSICS AND ASTRONOMY PROFESSOR documentation: I have reviewed and agree with all interventions, assessments performed and documented by Viji Mcgill LVN.
[2023-04-17 07:00] VITALS: BP 76/43; PULSE 55; RESP 16; TEMP 97.4; O2SAT 94
[2023-04-17] MEDS: hydrOXYzine 25 MG tablet PO SCH ×3 (08:46→20:19)
[2023-04-17] MEDS: LORazepam 0.5 MG tablet PO SCH (08:46)
[2023-04-17] MEDS: pantoprazole 40mg Tablet.DR PO SCH (08:46)
[2023-04-17] MEDS: busPIRone 5mg tablet PO SCH ×3 (08:47→20:17)
[2023-04-17] MEDS: PALIPERIDONE 3 MG TAB.ER.24 PO SCH (08:47)
[2023-04-17] MEDS: docusate sod 100mg capsule PO SCH ×2 (08:47→20:17)
[2023-04-17] MEDS: benztropine 1mg tablet PO SCH ×2 (08:47→20:18)
[2023-04-17] MEDS: venlafaxine XR 75mg capsule (Q24H) PO SCH (08:47)
[2023-04-17] MEDS: buprenorphine/naloxone 2-0.5mg sublingual tablet SL SCH (08:48)
--- NOTE | 2023-04-17 08:50 | NUR ---
DISCHARGE PLAN This [employer] spoke with Hailey Peace, Pt's PO at [facility]. Hailey confirmed that she is able to pick Pt. up on SaturdayApril 23. The plan is to be at [facility] by about 10AM in the morning to pickling drum operator Pt. and transport her back to the [facility] custodial. Will have her medications ordered through [facility] so that she has them with her when she arrives back at the custodial per her POs request. Pt is aware that she is leaving Saturday and returning to custodial. She has found bed availability in other [facility] ([facility] did not want her back at their program due to her mental health issues) programs and is hopeful the court will give her another chance to try one of these places. Her PO is working with her with this process. Hailey Carlos LCSW
--- NOTE | 2023-04-17 14:49 | NUR ---
Nursing Progress Note: Problem : A 38 year old female, with multiple medical problems in addition to psychiatric disorder, presented with altered level of consciousness and was admitted to PCU. Was in [facility] for some time then was at [facility] for 1 month. She reported to staff at [facility], I think Im going to today. Patient then disappeared for a bit and was found in a position with ALOC. Medical history includes: Possible seizure disorder, Uncontrolled HTN, COPD, Chronic Diverticulosis, UTIs, Depression/Anxiety, Bipolar, SI attempts, Meth and Opioid abuse. Interventions : Maintained a safe and supportive environment, provided clear and simple instructions, provided active listening and positive encouragement, obtained ordered urine sample and completed a bladder scan, and maintained Q 15min safety checks. Response : Received pt. sleeping in bed at the beginning of the shift, she awoke to attend breakfast in the Group Room, and afterwards retreated back to bed as is her routine. Pt. continues to isolate, but did attend Group and was observed to be participating. 1:1 was completed later at bedside, pt. continues to present with a blunted affect, but will participate in initiated conversation. She again stares blankly at times and exhibits thought blocking at intervals. Pt. endorses ongoing S/I, and again declines to discuss any plan, however is able to contract for safety while on the unit. She also endorses some anxiety r/t some confusion regarding the date of her upcoming discharge which she believes to be next week. Pt. states, "I don't know what to tell my complaint evaluation officer." Pt. plans to discuss this with DELVIN Yap. Plan : Pt. continues to require medication adjustments and a safe and supportive environment. Addendum: 04/18/23 at 0333 by Anais Hoffmann LVN Nursing Progress Note: Vida Problem: A 38 year old female, with multiple medical problems in addition to psychiatric disorder, presented with altered level of consciousness and was admitted to PCU. Was in [facility] for some time then was at [facility] for 1 month. She reported to staff at [facility], I think Im going to today. Patient then disappeared for a bit and was found in a position with ALOC. Medical history includes: Possible seizure disorder, Uncontrolled HTN, COPD, Chronic Diverticulosis, UTIs, Depression/Anxiety, Bipolar, SI attempts, Meth and Opioid abuse. Interventions : Maintained a safe and supportive environment, provided clear and simple instructions, provided active listening and positive encouragement, obtained ordered urine sample and completed a bladder scan, and maintained Q 15min safety checks. Response: Upon beginning of shift patient was seen walking in hallway to retrieve a phone. Patient talked on phone for some time. During 1:1, patient admitted to SI. Patient denied A/VH, HI, and pain. Patient LBM 090/13. Patient seemed to be having a good day. Patient states she is leaving soon, she had two different possible placements. She also mentions the possibility of doing 5 years in [place]. Patient opened up about life and what has brought her here. Patient continues to express the feeling of nothing left to live for, after a few life changing events. Patient is sadden by the fact she wasnt there for her son graduating kindergarten and if she goes to [place] she wont be there for his high school graduation. Patient also expresses the trouble her sister is going through with raising her 13 year old daughter. She says she needs to get out and get her life right in order to keep her kids from being like her because her daughter is her spitting image. She doesnt have her mother (murdered) and her father is a leader in the [employer] in [place]. Patient seems confident in getting better and being a part of her kids life. Patient currently in bed with eyes closed. No obvious signs of distress to note. Plan: Pt. continues to require medication adjustments and a safe and supportive environment.
[2023-04-17 20:00] VITALS: BP 112/74; PULSE 74; RESP 16; TEMP 97.7; O2SAT 95
[2023-04-17] MEDS: mirtazapine 15mg tablet PO SCH (20:18)
[2023-04-17] MEDS: traZODone 50mg tablet PO SCH (20:19)
[2023-04-17] MEDS: prazosin 1mg capsule PO SCH (20:20)
[2023-04-17] MEDS: lithium carbonate 150mg capsule PO SCH (20:21)
--- NOTE | 2023-04-18 03:35 | NUR ---
NURSING PROGRESS NOTE: Carolee Problem: Pt admitted today to [facility] on 5150 for DTS from 4th floor at 1500. Pt reports suicidal thoughts, "I dont want to live." a desire to , and sadness. She reports a plan to continue to use illegal substances. "I know it will kill me. Its a painful . Maybe I deserve the pain." Pt has history of CHF, pacemaker, AFIB, DM II, depression, anxiety. Interventions: 1:1 assessment, therapeutic conversation, active listening, medication administration/education/monitoring, ensured contract for safety, maintained a safe environment, provided distraction, direction, encouragement, positive reinforcement, and Q15 minute safety checks. Response: upon beginning of shift patient seen approaching nurses station to ask for sleep aid, in which she was told it was far too early. During 1:1, patient admitted to having SI, but denied A/VH, and HI. Patient said she was doing so-so. Patient stated she had heart pain from a broken heart when asked if shes in any pain. Patient continue to say her heartbreak is from her neighbor, Jody dreamed of him for a very long time. Patient states I need the sleep aide so I dont feel pain and so I can go to my wonderful dreams. Patient admits to OD on drugs and says it worked for my sister, why not me? I must have not have done them long enough. Patient [place] living [place], and says she feels safe because security walks around at night. Patient claims she lives on [address]. Patient LBM 04/17. Patient currently in bed with eyes closed. No obvious signs of distress to note. Plan: Pt. continues to require a safe and supportive environment Addendum: 04/18/23 at 0506 by Anais Hoffmann LVN Wrong patient
--- NOTE | 2023-04-18 05:16 | NUR ---
Nursing Progress Note: Problem : A 38 year old female, with multiple medical problems in addition to psychiatric disorder, presented with altered level of consciousness and was admitted to PCU. Was in [facility] for some time then was at [facility] for 1 month. She reported to staff at [facility], I think Im going to today. Patient then disappeared for a bit and was found in a position with ALOC. Medical history includes: Possible seizure disorder, Uncontrolled HTN, COPD, Chronic Diverticulosis, UTIs, Depression/Anxiety, Bipolar, SI attempts, Meth and Opioid abuse. Interventions : Maintained a safe and supportive environment, provided clear and simple instructions, provided active listening and positive encouragement, obtained ordered urine sample and completed a bladder scan, and maintained Q 15min safety checks. Response : Upon shift patient seen talking on phone in room lying supine. During Medication pass, patient denies all psychosis symptoms except for SI. patient began to express the reason behind her actions. patient states "once i lost my son, i didn't feel like there was anything worth living". "i wasn't there for his kindergarten graduation and if i go to [facility] five years i wont be there to see him graduate high school". patient was on phone with sister whom is taking care of her troubled 13 year old daughter. she states her daughter is her spitting image. patient seems confident in her plan to become the mom she should of been all along. she doesn't want to miss out on anything else. Patient has two possible placements or residential depending on the appeals analyst. patient LBM 04/16. patient currently in bed with eyes closed, no obvious distress to note. Plan : Pt. continues to require medication adjustments and a safe and supportive environment. Addendum: 04/18/23 at 0539 by Lorraine Rush RN LEAD NETWORK ENGINEER documentation: I have reviewed and agree with all interventions, assessments performed and documented by Larissa Hoffmann LVN.
[2023-04-18 07:00] VITALS: RESP 16; O2SAT 95
[2023-04-18 08:00] VITALS: BP 110/70; PULSE 74; RESP 16; TEMP 97.9; O2SAT 95
[2023-04-18] MEDS: pantoprazole 40mg Tablet.DR PO SCH (08:52)
[2023-04-18] MEDS: busPIRone 5mg tablet PO SCH ×3 (08:53→20:19)
[2023-04-18] MEDS: venlafaxine XR 75mg capsule (Q24H) PO SCH (08:53)
[2023-04-18] MEDS: benztropine 1mg tablet PO SCH ×2 (08:53→20:20)
[2023-04-18] MEDS: hydrOXYzine 25 MG tablet PO SCH ×2 (08:53→13:18)
[2023-04-18] MEDS: docusate sod 100mg capsule PO SCH (08:53)
[2023-04-18] MEDS: LORazepam 0.5 MG tablet PO SCH (08:53)
[2023-04-18] MEDS: buprenorphine/naloxone 2-0.5mg sublingual tablet SL SCH (08:54)
[2023-04-18] MEDS: PALIPERIDONE 3 MG TAB.ER.24 PO SCH (08:54)
--- NOTE | 2023-04-18 15:15 | NUR ---
Nursing Progress Note: Problem : A 38 year old female, with multiple medical problems in addition to psychiatric disorder, presented with altered level of consciousness and was admitted to PCU. Was in [facility] for some time then was at [facility] for 1 month. She reported to staff at [facility], I think Im going to today. Patient then disappeared for a bit and was found in a position with ALOC. Medical history includes: Possible seizure disorder, Uncontrolled HTN, COPD, Chronic Diverticulosis, UTIs, Depression/Anxiety, Bipolar, SI attempts, Meth and Opioid abuse. Interventions : Maintained a safe and supportive environment, provided clear and simple instructions, provided active listening and positive encouragement, obtained ordered urine sample and completed a bladder scan, and maintained Q 15min safety checks. Response : Received pt. sleeping in bed at the beginning of the shift, she awoke to attend breakfast in the Group Room, and afterwards retreated back to bed as is her routine. Pt. was observed to be more active on the unit this shift, she attended group and then sat up in the Group Room watching TV with others. 1:1 was completed later later at bedside, pt. continues to present with a blunted affect, but appears goal oriented and asks this leader writer about the possibility of painting her toe nails and shaving her legs before discharge next week. Pt. is exhibiting less thought blocking and participates readily in conversation this shift. When questioned regarding S/I, pt. states, "I don't think those thoughts will ever go away." She then talks about her ongoing grief regarding her mother's . This leader writer provided active listening and positive encouragement and pt. reported contentment. Plan : Pt. continues to require medication adjustments and a safe and supportive environment.
--- NOTE | 2023-04-18 16:13 | NUR ---
F/u 04/18: Pt continues on a regular diet with average PO intake 98% x 17 meals meeting 100% of estimated kcal and protein needs. LBM on 04/17 receiving routine bowel care per EMR. Will continue to monitor. Recommendations: 1) Continue regular diet 2) Bowel care per rx 3) Weekly scaled weights Addendum: 04/18/23 at [address] Amended: Links added.
[2023-04-18 19:46] VITALS: RESP 16; O2SAT 96
[2023-04-18 19:47] VITALS: BP 108/68; PULSE 72; RESP 16; TEMP 97.3; O2SAT 96
[2023-04-18] MEDS: lithium carbonate 150mg capsule PO SCH (20:18)
[2023-04-18] MEDS: mirtazapine 15mg tablet PO SCH (20:19)
[2023-04-18] MEDS: traZODone 50mg tablet PO SCH (20:19)
[2023-04-18] MEDS: prazosin 1mg capsule PO SCH (20:21)
[2023-04-18] MEDS: magnesium hydroxide 30ml (MOM) UD suspension PO PRN (20:50)
--- NOTE | 2023-04-19 03:17 | NUR ---
Nursing Progress Note: Vida Problem: A 38 year old female, with multiple medical problems in addition to psychiatric disorder, presented with altered level of consciousness and was admitted to PCU. Was in [facility] for some time then was at [facility] for 1 month. She reported to staff at [facility], I think Im going to today. Patient then disappeared for a bit and was found in a position with ALOC. Medical history includes: Possible seizure disorder, Uncontrolled HTN, COPD, Chronic Diverticulosis, UTIs, Depression/Anxiety, Bipolar, SI attempts, Meth and Opioid abuse. Interventions : Maintained a safe and supportive environment, provided clear and simple instructions, provided active listening and positive encouragement, obtained ordered urine sample and completed a bladder scan, and maintained Q 15min safety checks. Response: upon shift patient observed eating dinner in common room with peers. After dinner patient approached this nurse and asked if I can monitor her while she cuts and polishes her toes. While patient did her toes, she asked about the cookies that her old roommate brought for her. She stated the cookies are missing and they werent supposed to be for staff but for patients. Patient wanted me to get ahold of [employer] whom is not working this evening to ask him where they went. Patient continued to express feeling anxious because Saturday is coming. This Saturday patient will go in front of the explosives truck driver to see if she will be sentenced 5 years or get placement to a new place. Patient denies all psychosis symptoms including pain. Yesterday 04/17 patient admitted to having BM, today 04/18 patient states she never said that and its been at least 3 days. This nurse administer MOM for bowel protocol. Patient currently in bed with eyes closed, no obvious signs of distress to note. Plan: Pt. continues to require medication adjustments and a safe and supportive environment. Addendum: 04/20/23 at 0413 by Christi Carreon RN DIRECTOR OF INDIVIDUAL GIVING documentation: I have reviewed and agree with all interventions, assessments performed and documented by Larissa Hoffmann LVN.
[2023-04-19 07:00] VITALS: RESP 16; O2SAT 95
[2023-04-19 08:00] VITALS: BP 90/49; PULSE 57; RESP 16; TEMP 97; O2SAT 94
[2023-04-19] MEDS: buprenorphine/naloxone 2-0.5mg sublingual tablet SL SCH (08:07)
[2023-04-19] MEDS: PALIPERIDONE 3 MG TAB.ER.24 PO SCH (08:07)
[2023-04-19] MEDS: busPIRone 5mg tablet PO SCH ×3 (08:07→20:00)
[2023-04-19] MEDS: venlafaxine XR 75mg capsule (Q24H) PO SCH (08:13)
[2023-04-19] MEDS: pantoprazole 40mg Tablet.DR PO SCH (08:14)
[2023-04-19] MEDS: benztropine 1mg tablet PO SCH ×2 (08:14→20:00)
[2023-04-19] MEDS: LORazepam 0.5 MG tablet PO SCH (08:14)
--- NOTE | 2023-04-19 15:33 | NUR ---
DISCHARGE PLAN Pt. will be picked up by her PO SaturdayApril 23 around 10AM. Her medications will be arriving from [facility] Saturday. She will be taking her meds with upon discharge. Pt is aware of this plan. Hailey Carlos LCSW
--- NOTE | 2023-04-19 16:57 | NUR ---
Nursing Progress Note: Problem : A 38 year old female, with multiple medical problems in addition to psychiatric disorder, presented with altered level of consciousness and was admitted to PCU. Was in [facility] for some time then was at [facility] for 1 month. She reported to staff at [facility], I think Im going to today. Patient then disappeared for a bit and was found in a position with ALOC. Medical history includes: Possible seizure disorder, Uncontrolled HTN, COPD, Chronic Diverticulosis, UTIs, Depression/Anxiety, Bipolar, SI attempts, Meth and Opioid abuse. Interventions : Maintained a safe and supportive environment, provided clear and simple instructions, provided active listening and positive encouragement, obtained ordered urine sample and completed a bladder scan, and maintained Q 15min safety checks. Response : Patient woke for breakfast and came to the community room for breakfast with her peers. Shes compliant with medications, then goes back to her room to nap, per her usual. She comes out for morning snack then remains active on the unit. 1:1 completed at bedside. Patient continues to report SI. Patients mother was murdered a couple years ago, and patient is also looking at 5 years in shelter. She is depressed and having SI due to these reasons among others. She denies other MH symptoms. Patient is less guarded and more open than at admit. Her affect is bright. She is going to groups and doing what she needs to help herself. Plan : Pt. continues to require medication adjustments and a safe and supportive environment.
[2023-04-19 19:00] VITALS: RESP 16; O2SAT 97
[2023-04-19] MEDS: lithium carbonate 150mg capsule PO SCH (19:58)
[2023-04-19] MEDS: traZODone 50mg tablet PO SCH (19:59)
[2023-04-19] MEDS: prazosin 1mg capsule PO SCH (19:59)
[2023-04-19 20:00] VITALS: BP 121/79; PULSE 75; RESP 16; TEMP 98.4; O2SAT 96
[2023-04-19] MEDS: mirtazapine 15mg tablet PO SCH (20:00)
[2023-04-19] MEDS ORDERED: LIT300C PO (21:48)
[2023-04-19] MEDS ORDERED: TRAZ-256 PO (21:48)
[2023-04-19] MEDS ORDERED: PROP10TA10 PO (21:48)
[2023-04-19] MEDS ORDERED: PRAZ1CAP5 PO (21:48)
[2023-04-19] MEDS ORDERED: PANT40TA54 PO (21:48)
[2023-04-19] MEDS ORDERED: MIRT-142 PO (21:48)
[2023-04-19] MEDS ORDERED: VENL75CA61 PO (21:48)
[2023-04-19] MEDS ORDERED: BENZ0.5T36 PO (21:48)
[2023-04-19] MEDS ORDERED: PALI6TAB PO (21:48)
[2023-04-19] MEDS ORDERED: ALBU18HF2 INH (21:48)
[2023-04-20] MEDS ORDERED: magnesium citrate 296ml oral solution PO ONE ×2 (01:00→08:00)
--- NOTE | 2023-04-20 03:22 | NUR ---
Nursing Progress Note: Problem: A 38 year old female, with multiple medical problems in addition to psychiatric disorder, presented with altered level of consciousness and was admitted to PCU. Was in [facility] for some time then was at [facility] for 1 month. She reported to staff at [employer] [facility], I think Im going to today. Patient then disappeared for a bit and was found in a position with ALOC. Medical history includes: Possible seizure disorder, Uncontrolled HTN, COPD, Chronic Diverticulosis, UTIs, Depression/Anxiety, Bipolar, SI attempts, Meth and Opioid abuse. Interventions : Maintained a safe and supportive environment, provided clear and simple instructions, provided active listening and positive encouragement, obtained ordered urine sample and completed a bladder scan, and maintained Q 15min safety checks. Response: This nurse took over patient care @1800. Patient seen in common room with peers chatting and enjoying dinner. During 1:1, patient admitted to with a plan. Patient denied all other psychosis symptoms including pain. Patient did express having some anxiety due to the plan of leaving here on Saturday. Patient has not had a bowel movement since 04/15, patient was given MOM the night before with no effect. Patient has requested mag citrate for in the AM. Patient attended HS snack with peers then returned to room for remainder of night. No obvious signs of distress to note. Plan: Pt. continues to require medication adjustments and a safe and supportive environment. Addendum: 04/20/23 at 0412 by Christi Carreon RN TRANSPORTATION COORDINATOR documentation: I have reviewed and agree with all interventions, assessments performed and documented by Larissa Hoffmann LVN.
[2023-04-20 07:34] VITALS: RESP 16; O2SAT 95
[2023-04-20] MEDS: PALIPERIDONE 3 MG TAB.ER.24 PO SCH (07:39)
[2023-04-20] MEDS: busPIRone 5mg tablet PO SCH ×3 (07:39→20:17)
[2023-04-20] MEDS: LORazepam 0.5 MG tablet PO SCH (07:39)
[2023-04-20] MEDS: pantoprazole 40mg Tablet.DR PO SCH (07:39)
[2023-04-20] MEDS: venlafaxine XR 75mg capsule (Q24H) PO SCH (07:40)
[2023-04-20] MEDS: benztropine 1mg tablet PO SCH ×2 (07:40→20:16)
[2023-04-20] MEDS: buprenorphine/naloxone 2-0.5mg sublingual tablet SL SCH (07:40)
[2023-04-20 08:00] VITALS: BP 96/62; PULSE 63; RESP 14; TEMP 97.4; O2SAT 100
--- NOTE | 2023-04-20 17:47 | NUR ---
Nursing Progress Note: Problem : A 38 year old female, with multiple medical problems in addition to psychiatric disorder, presented with altered level of consciousness and was admitted to PCU. Was in [facility] for some time then was at [facility] for 1 month. She reported to staff at [facility], I think Im going to today. Patient then disappeared for a bit and was found in a position with ALOC. Medical history includes: Possible seizure disorder, Uncontrolled HTN, COPD, Chronic Diverticulosis, UTIs, Depression/Anxiety, Bipolar, SI attempts, Meth and Opioid abuse. Interventions : Maintained a safe and supportive environment, provided clear and simple instructions, provided active listening and positive encouragement, obtained ordered urine sample and completed a bladder scan, and maintained Q 15min safety checks. Response : Patient woke for breakfast and came to the community room. She eats with her peers and accepts her AM meds. Patient goes back to her room, but does not sleep. She has a bright affect with some sadness showing. Patient now has a discharge plan for Saturday. Her commanding officer traffic division will pick her up and deliver to destination. Patient is anxious about the not knowing what will happen. She continues to report some depression, but denies all other MH symptoms. Plan : Pt. continues to require medication adjustments and a safe and supportive environment.
[2023-04-20 19:29] VITALS: BP 111/76; PULSE 67; RESP 16; TEMP 97.3; O2SAT 97
[2023-04-20] MEDS: traZODone 50mg tablet PO SCH (20:16)
[2023-04-20] MEDS: lithium carbonate 150mg capsule PO SCH (20:16)
[2023-04-20] MEDS: prazosin 1mg capsule PO SCH (20:16)
[2023-04-20] MEDS: mirtazapine 15mg tablet PO SCH (20:16)
--- NOTE | 2023-04-20 23:27 | NUR ---
Nursing Progress Note: Problem : A 38 year old female, with multiple medical problems in addition to psychiatric disorder, presented with altered level of consciousness and was admitted to PCU. Was in [facility] for some time then was at [facility] for 1 month. She reported to staff at [facility], I think Im going to today. Patient then disappeared for a bit and was found in a position with ALOC. Medical history includes: Possible seizure disorder, Uncontrolled HTN, COPD, Chronic Diverticulosis, UTIs, Depression/Anxiety, Bipolar, SI attempts, Meth and Opioid abuse. Interventions : Maintained a safe and supportive environment, provided clear and simple instructions, provided active listening and positive encouragement, obtained ordered urine sample and completed a bladder scan, and maintained Q 15min safety checks. Response : Patient is pleasant and cooperative with care; compliant with medication. Patient denied SI, HI, A/VH; no apparent delusions expressed. Patient expressed "stressing" about court next week. She mostly self isolated to her room; briefly participated in HS snack. She is observed sleeping and does not appear to be having difficulty. Plan : Pt. continues to require medication adjustments and a safe and supportive environment. Addendum: 04/21/23 at 1257 by Christi Carreon RN JULIO CESAR documentation: I have reviewed and agree with all interventions, assessments performed and documented by Mary HARRELL.
[2023-04-21 07:56] VITALS: BP 94/54; PULSE 72; RESP 16; TEMP 96.2; O2SAT 98
[2023-04-21] MEDS: pantoprazole 40mg Tablet.DR PO SCH (08:03)
[2023-04-21] MEDS: busPIRone 5mg tablet PO SCH ×3 (08:03→20:40)
[2023-04-21] MEDS: buprenorphine/naloxone 2-0.5mg sublingual tablet SL SCH (08:03)
[2023-04-21] MEDS: venlafaxine XR 75mg capsule (Q24H) PO SCH (08:03)
[2023-04-21] MEDS: benztropine 1mg tablet PO SCH ×2 (08:03→20:30)
[2023-04-21] MEDS: PALIPERIDONE 3 MG TAB.ER.24 PO SCH (08:04)
[2023-04-21] MEDS: LORazepam 0.5 MG tablet PO SCH (08:04)
--- NOTE | 2023-04-21 10:46 | NUR ---
Nursing Progress Note: Problem : A 38 year old female, with multiple medical problems in addition to psychiatric disorder, presented with altered level of consciousness and was admitted to PCU. Was in [facility] for some time then was at [facility] for 1 month. She reported to staff at [facility], I think Im going to today. Patient then disappeared for a bit and was found in a position with ALOC. Medical history includes: Possible seizure disorder, Uncontrolled HTN, COPD, Chronic Diverticulosis, UTIs, Depression/Anxiety, Bipolar, SI attempts, Meth and Opioid abuse. Interventions : Maintained a safe and supportive environment, provided clear and simple instructions, provided active listening and positive encouragement, obtained ordered urine sample and completed a bladder scan, and maintained Q 15min safety checks. Response : Patient is pleasant and cooperative with care; compliant with medication. Patient denied SI, HI, A/VH; no apparent delusions expressed. She participates in meals and snack; socializes with peers. Patient remains constipated but reported small (difficult) BM; refused MOM. Plan : Pt. continues to require medication adjustments and a safe and supportive environment. Addendum: 04/21/23 at 1257 by Christi Carreon RN AGGREGATE CONVEYOR OPERATOR documentation: I have reviewed and agree with all interventions, assessments performed and documented by Mary HARRELL.
[2023-04-21] MEDS: acetaminophen 325mg tablet PO PRN (19:22)
[2023-04-21 19:28] VITALS: BP 111/74; PULSE 63; RESP 16; TEMP 97.8; O2SAT 97
[2023-04-21] MEDS: polyethylene glycol 3350 17gm powd pack PO SCH (20:30)
[2023-04-21] MEDS: traZODone 50mg tablet PO SCH (20:31)
[2023-04-21] MEDS: prazosin 1mg capsule PO SCH (20:31)
[2023-04-21] MEDS: lithium carbonate 150mg capsule PO SCH (20:31)
[2023-04-21] MEDS: mirtazapine 15mg tablet PO SCH (20:31)
--- NOTE | 2023-04-22 00:28 | NUR ---
Nursing Progress Note: Problem : A 38 year old female, with multiple medical problems in addition to psychiatric disorder, presented with altered level of consciousness and was admitted to PCU. Was in [facility] for some time then was at [facility] for 1 month. She reported to staff at [facility], I think Im going to today. Patient then disappeared for a bit and was found in a position with ALOC. Medical history includes: Possible seizure disorder, Uncontrolled HTN, COPD, Chronic Diverticulosis, UTIs, Depression/Anxiety, Bipolar, SI attempts, Meth and Opioid abuse. Interventions : Maintained a safe and supportive environment, provided clear and simple instructions, provided active listening and positive encouragement, obtained ordered urine sample and completed a bladder scan, and maintained Q 15min safety checks. Response : Patient is pleasant and cooperative with care; compliant with medication. PRN Tylenol for tooth pain provided. She denied SI, HI, A/VH; no apparent delusions expressed. Patient observed watching football with peers and provided in HS snack prior to bed; appears to be sleeping without difficulty. Plan : Per SS note, "Pt. will be picked up by her PO SaturdayApril 23 around 10AM. Her medications will be arriving from [facility] Saturday. She will be taking her meds with upon discharge. Pt is aware of this plan."
--- NOTE | 2023-04-22 05:39 | NUR ---
[employer] SCRUBBER OPERATOR documentation: I have reviewed and agree with all interventions, assessments performed and documented by Mary Pinedo LVN.
[2023-04-22 07:00] VITALS: BP 75/41; PULSE 69; RESP 16; TEMP 97.1; O2SAT 94; O2SAT 98
[2023-04-22] MEDS: busPIRone 5mg tablet PO SCH ×3 (08:00→20:23)
[2023-04-22] MEDS: venlafaxine XR 75mg capsule (Q24H) PO SCH (08:26)
[2023-04-22] MEDS: pantoprazole 40mg Tablet.DR PO SCH (08:26)
[2023-04-22] MEDS: PALIPERIDONE 3 MG TAB.ER.24 PO SCH (08:27)
[2023-04-22] MEDS: benztropine 1mg tablet PO SCH ×2 (08:27→20:22)
[2023-04-22] MEDS: buprenorphine/naloxone 2-0.5mg sublingual tablet SL SCH (08:27)
[2023-04-22] MEDS: LORazepam 0.5 MG tablet PO SCH (08:28)
--- NOTE | 2023-04-22 15:22 | NUR ---
Nursing Progress Note:[place] Problem: A 38 year old female, with multiple medical problems in addition to psychiatric disorder, presented with altered level of consciousness and was admitted to PCU. Medical history includes: Possible seizure disorder, Uncontrolled HTN, COPD, Chronic Diverticulosis, UTIs, Depression/Anxiety, Bipolar, SI attempts, Meth and Opioid abuse. Currently on VOL Interventions: Provided 1:1 assessment, therapeutic conversation, active listening, medication administration/education/monitoring, behavior monitoring and intervention as needed; attempted reality orientation, provided distraction, redirection, positive reinforcement, and Q15 min safety checks. Response: Pt. received asleep and awoke to take her medications without hesitation, however she did only take a 1 Naloxone, she reports I dont want to withdraw, I dont think Ill get this med where Im going other dose wasted per protocol, and provider notified. She endorses SI d/t her current circumstances, she denies HI, AH, VH. Pt. spent most of the shift in her room, attended group, and ate her meals with cohorts. She requested a shower, has fair hygiene, and is wearing unit scrubs. Plan: Patient is in need of a safe and secure environment with medication changes
[2023-04-22 19:24] VITALS: BP 105/64; PULSE 54; RESP 16; TEMP 97.4; O2SAT 98
[2023-04-22] MEDS: mirtazapine 15mg tablet PO SCH (20:22)
[2023-04-22] MEDS: prazosin 1mg capsule PO SCH (20:22)
[2023-04-22] MEDS: polyethylene glycol 3350 17gm powd pack PO SCH (20:23)
[2023-04-22] MEDS: traZODone 50mg tablet PO SCH (20:23)
[2023-04-22] MEDS: lithium carbonate 150mg capsule PO SCH (20:23)
--- NOTE | 2023-04-22 22:39 | NUR ---
Nursing Progress Note: Problem : A 38 year old female, with multiple medical problems in addition to psychiatric disorder, presented with altered level of consciousness and was admitted to PCU. Was in [facility] for some time then was at [facility] for 1 month. She reported to staff at [facility], I think Im going to today. Patient then disappeared for a bit and was found in a position with ALOC. Medical history includes: Possible seizure disorder, Uncontrolled HTN, COPD, Chronic Diverticulosis, UTIs, Depression/Anxiety, Bipolar, SI attempts, Meth and Opioid abuse. Interventions : Maintained a safe and supportive environment, provided clear and simple instructions, provided active listening and positive encouragement, and maintained Q 15min safety checks. Response : Patient is pleasant and cooperative with care; compliant with medication. Patient appeared depressed and isolative to her room this shift. No SI, HI, A/VH reported; no apparent delusions expressed. Patient provided HS snack prior to bed. Plan : Per SS note, "Pt. will be picked up by her PO SaturdayApril 23 around 10AM. Her medications will be arriving from [facility] Saturday. She will be taking her meds with upon discharge. Pt is aware of this plan."
[2023-04-23 07:30] VITALS: BP 89/47; PULSE 66; RESP 18; TEMP 96.9; O2SAT 94
[2023-04-23] MEDS ORDERED: buprenorphine/naloxone 2-0.5mg sublingual tablet SL SCH (08:00)
[2023-04-23] MEDS: PALIPERIDONE 3 MG TAB.ER.24 PO SCH (08:23)
[2023-04-23] MEDS: busPIRone 5mg tablet PO SCH (08:23)
[2023-04-23] MEDS: benztropine 1mg tablet PO SCH (08:24)
[2023-04-23] MEDS: pantoprazole 40mg Tablet.DR PO SCH (08:24)
[2023-04-23] MEDS: venlafaxine XR 75mg capsule (Q24H) PO SCH (08:25)
--- NOTE | 2023-04-23 10:52 | NUR ---
DISCHARGE NOTE: Pt. discharged to [facility] Probation Officers taking pt. to [facility]. Pt. discharged with all belongings, valuables, and medications. Pt. verbalized understanding of discharge paperwork including firearms restriction, emergency phone numbers, f/u plan, and discharge medications. Pt. signed all paperwork. Pt. reports SI with a plan to OD on fentanyl. Pt. denies HI, A/V hallucinations. Pt. is A&Ox4 and in no apparent distress.
== END 2023-04-23 10:52 | DRG 751 ==
LOC: ADULT MH 03-21 00:25
PROVIDERS: ADMIT Psychiatry & Neurology Psychiatry; ATTEND Psychiatry & Neurology Psychiatry
DX: F29 Unspecified psychosis not due to a substance or known physiological condition (principal); R45.851 Suicidal ideations; F41.1 Generalized anxiety disorder; K21.9 Gastro-esophageal reflux disease without esophagitis; E78.5 Hyperlipidemia, unspecified; F41.0 Panic disorder [episodic paroxysmal anxiety]; E87.6 Hypokalemia; F11.21 Opioid dependence, in remission; K59.09 Other constipation; J44.9 Chronic obstructive pulmonary disease, unspecified; K57.90 Diverticulosis of intestine, part unspecified, without perforation or abscess without bleeding; I10 Essential (primary) hypertension; Z56.0 Unemployment, unspecified; Z59.00 Homelessness unspecified; Z88.0 Allergy status to penicillin; Z91.51 Personal history of suicidal behavior; Z81.8 Family history of other mental and behavioral disorders; F32.A Depression, unspecified
CPT/HCPCS: 36415; 80053; 81001; 83721; 83735; 85025; 85651; 87081; 99285; A6250; Q0177